=== PATIENT | female | born 1985 | race Caucasian/White ===

== ENCOUNTER → 2017-05-06 | Outpatient (CLI) | payer OTHER ==
--- NOTE | 2017-05-07 03:41 | MR ---
EXAMINATION TYPE: MR knee LT wo con DATE OF EXAM: 05/06/2017 COMPARISON: 01/02/2012 HISTORY: Left Knee Pain with Locking and Swelling since November 2016 TECHNIQUE: Multiplanar, multisequence imaging of the left knee is performed without IV contrast. FINDINGS: The anterior and posterior cruciate ligaments are intact. There is mild knee joint effusion. There is increased signal within the posterior horn medial meniscus. I see no full-thickness tear. The latera l meniscus is intact. The collateral ligaments are intact. There is mixed signal in the distal femora l metaphysis that could relate to old bone infarct. The joint spaces are fairly normal. There is no s ign of a fracture. IMPRESSION: There is a knee joint effusion that is increased slightly compared to old exam. No evidence of ligame ntous tear. There is intrasubstance tear or degenerative signal change of the posterior horn medial m eniscus similar to old exam. 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
== END | disposition home or self-care (01) ==
LOC: RADMRIMAIN 21:37
PROVIDERS: ATTEND Family Medicine
DX: M25.462 Effusion, left knee (principal)

== ENCOUNTER 2017-07-08 20:25 | Emergency (ER) | payer OTHER ==
[2017-07-08 20:33] VITALS: BP 102/59; PULSE 87; RESP 18; TEMP 97.6
--- NOTE | 2017-07-08 21:11 | ED ---
Fall HPI - General Chief Complaint: Fall Stated Complaint: Fall. L hand Injury Time Seen by Provider: 07/08/17 20:42 Source: patient Mode of arrival: ambulatory - History of Present Illness Initial Comments: 31-year-old female patient presents for evaluation of left hand pain. Patient [place] states that she got up into a tree states that when she jumped down from the tree her foot landed on an apple and she fell forward landing on her outstretched palm. Patient states that she is having pain in her hand extending from the base of the third digit down across her palm. She states that it hurts worse while making a fist or extending the fingers. She denies any numbness or tingling to the hand or fingers. She states that she is able to perform full range of motion however has increased pain with this. She denies any pain to the wrist. Denies any painful range of motion of the wrist. She denies any previous injury to the hand. She states the pain has worsened as the day progressed. She denies taking anything for pain. She denies hitting her head or losing consciousness. She denies any other injuries. Patient denies any headache, neck pain, back pain, chest pain, shortness of breath, dizziness, weakness, abdominal pain, nausea, vomiting, or difficulties with bowel movements or urination. - Related Data Home Medications Medication Instructions Recorded Confirmed Albuterol Sulfate [Proair Hfa] 1 - 2 puff INHALATION Q6HR PRN 10/25/14 08/16/16 Beclomethasone Dipropionate [Qvar 1 puff INHALATION RT-DAILY 07/08/17 07/08/17 80 mcg] Loratadine [Claritin] 10 mg PO DAILY 07/08/17 07/08/17 Montelukast [Singulair] 10 mg PO DAILY 07/08/17 07/08/17 Phentermine HCl [Adipex-P] 37.5 mg PO QAM 07/08/17 07/08/17 buPROPion XL [Wellbutrin XL] 150 mg PO DAILY 07/08/17 07/08/17 Allergies Allergy/AdvReac Type Severity Reaction Status Date / Time alcohol Allergy Unknown Verified 07/08/17 20:33 [From Mastisol Adhesive] gum mastic Allergy Unknown Verified 07/08/17 20:33 [From Mastisol Adhesive] methyl salicylate Allergy Unknown Verified 07/08/17 20:33 [From Mastisol Adhesive] storax Allergy Unknown Verified 07/08/17 20:33 [From Mastisol Adhesive] Review of Systems ROS Statement: Those systems with pertinent positive or pertinent negative responses have been documented in the HPI. ROS Other: All systems not noted in ROS Statement are negative. Past Medical History Past Medical History: Asthma History of Any Multi-Drug Resistant Organisms: None Reported Past Surgical History: Section Additional Past Surgical History / Comment(s): rhinoplasty Past Anesthesia/Blood Transfusion Reactions: Motion Sickness, Postoperative Nausea & Vomiting (PONV) Past Psychological History: No Psychological Hx Reported Smoking Status: Never smoker Past Alcohol Use History: None Reported Past Drug Use History: None Reported - Past Family History Mother Family Medical History: Cancer General Exam Limitations: no limitations General appearance: alert, in no apparent distress, other (This is a well- developed, well-nourished adult female patient in no acute distress. Vital signs upon presentation her temperature 97.6F, pulse 87, respirations 18, blood pressure 102/59, pulse ox 100% on room air.) Head exam: Present: atraumatic, normocephalic, normal inspection Eye exam: Present: normal appearance, PERRL, EOMI. Absent: scleral icterus, conjunctival injection, periorbital swelling Neck exam: Present: normal inspection, full ROM, other (Nontender, no step-off, no deformity to firm midline palpation of the posterior cervical spine. Full range of motion without pain or limitation.). Absent: tenderness, meningismus, lymphadenopathy Respiratory exam: Present: normal lung sounds bilaterally. Absent: respiratory distress, wheezes, rales, rhonchi, stridor Cardiovascular Exam: Present: regular rate, normal rhythm, normal heart sounds. Absent: systolic murmur, diastolic murmur, rubs, gallop, clicks Extremities exam: Present: normal inspection, full ROM, tenderness (Tenderness over the left hand. No tenderness over the wrist, no tenderness over the anatomical snuffbox.), normal capillary refill, other (Skin to the left upper extremity is pink, warm, and dry. Cap refills less than 3 seconds. Radial pulse is intact and 2+.). Absent: pedal edema, joint swelling, calf tenderness Back exam: Present: normal inspection, other (Nontender, no step-off, no deformity to firm midline palpation of the thoracic and lumbar vertebrae. Full range of motion without pain or limitation.). Absent: tenderness, vertebral tenderness Neurological exam: Present: alert, oriented X3, CN II-XII intact Psychiatric exam: Present: normal affect, normal mood Skin exam: Present: warm, dry, intact, normal color. Absent: rash Course Vital Signs 07/08/17 20:30 Temperature 97.6 F Pulse Rate 87 Respiratory 18 Rate Blood Pressure 102/59 O2 Sat by Pulse 100 Oximetry Medical Decision Making - Medical Decision Making 31-year-old male patient is under evaluation of left hand pain after an injury earlier today. X-ray of the hand was negative for any acute fracture or dislocation. Patient had no tenderness over the anatomical snuffbox and did have full range of motion. José wrap was applied. She was instructed to follow up for repeat x-ray in 7-10 days if her symptoms persist. She is instructed to rest, ice, and elevate. She is instructed to ibuprofen or Tylenol for pain control. She is instructed to return immediately for any new, worsening, or concerning symptoms. She verbalizes understanding and agrees with this plan. - Radiology Data Radiology results: report reviewed, image reviewed Three-view x-ray of the left hand shows no fracture or dislocation. Joint spaces are normal. There are no pathologic calcifications. Impression by Dr. London shows negative left hand exam. Disposition Clinical Impression: Sprain of left hand Disposition: HOME SELF-CARE Condition: Good Instructions: Hand Sprain (ED) Additional Instructions: Rest, ice, and elevate the extremity. Take Avapro and or Tylenol for pain control. Follow up for repeat x-ray in 7-10 days if pain symptoms persist. Activity as tolerated with the hand. Use José wrap for compression and support. Return here immediately for any new, worsening, or concerning symptoms. Referrals: Alla Guzmán MD [Primary Care Provider] - 1-2 days Time of Disposition: 21:24
--- NOTE | 2017-07-08 21:12 | XR ---
EXAMINATION TYPE: XR hand complete LT DATE OF EXAM: 07/08/2017 COMPARISON: NONE HISTORY: Pain TECHNIQUE: 3 views FINDINGS: I see no fracture nor dislocation. Joint spaces are normal. There are no pathologic calcifi cations. IMPRESSION: Negative left hand exam
== END 2017-07-08 21:29 | disposition home or self-care (01) ==
LOC: EC 20:25
DX: S63.92XA Sprain of unspecified part of left wrist and hand, initial encounter (principal); J45.909 Unspecified asthma, uncomplicated; Z79.51 Long term (current) use of inhaled steroids; Z79.899 Other long term (current) drug therapy; Z91.048 Other nonmedicinal substance allergy status; W14.XXXA Fall from tree, initial encounter; Y92.74 Orchard as the place of occurrence of the external cause
CPT/HCPCS: 99283

== ENCOUNTER → 2018-11-26 | Outpatient (CLI) | payer OTHER ==
[2018-11-26 18:17] LABS: Iron Saturation 14.06 (12.00-45.00)
[2018-11-26 18:27] LABS: Vitamin D 25 Hydroxy 21.2 ng/mL (30.0-100.0)
== END | disposition home or self-care (01) ==
LOC: LABWHC1 14:57
PROVIDERS: ATTEND Dermatology
DX: L65.9 Nonscarring hair loss, unspecified (principal)
CPT/HCPCS: 36415; 82306; 82627; 82728; 83540; 83550; 84403; 86038

== ENCOUNTER → 2019-10-13 | Outpatient (CLI) | payer SELFPAY ==
[2019-10-13 10:41] LABS: HCT 39.7 % (34.0-46.0); HGB 12.5 gm/dL (11.4-16.0); Hypochromasia Slight; MCH 26.9 pg (25.0-35.0); MCHC 31.4 g/dL (31.0-37.0); MCV 85.5 fL (80.0-100.0); Mean Platelet Volume 6.9; Platelet Count 410 k/uL (150-450); RBC 4.64 m/uL (3.80-5.40); RDW 12.7 % (11.5-15.5); WBC 5.9 k/uL (3.8-10.6)
[2019-10-13 10:48] LABS: INR 0.9 (<1.2); Partial Thromboplastin Time 22.6 sec (22.0-30.0); Prothrombin Time 9.6 sec (9.0-12.0)
[2019-10-13 16:33] LABS: Albumin 4.2 g/dL (3.80-4.90); Anion Gap 9.2 mmol/L (4.00-12.00); BUN/Creat Ratio 14.29 Ratio (12.00-20.00); Calcium 9.2 mg/dL (8.7-10.3); Carbon Dioxide 26.8 mmol/L (21.6-31.8); Globulin 2.1 g/dL (1.6-3.3); Potassium 4.4 mmol/L (3.5-5.5); Total Bilirubin 0.2 mg/dL (0.3-1.2); Total Protein 6.3 g/dL (6.2-8.2)
== END | disposition home or self-care (01) ==
LOC: LABWHC1 10:09
PROVIDERS: ATTEND Plastic Surgery Plastic Surgery Within the Head and Neck
DX: D64.9 Anemia, unspecified (principal); D68.9 Coagulation defect, unspecified; E87.8 Other disorders of electrolyte and fluid balance, not elsewhere classified
CPT/HCPCS: 36415; 80053; 85027; 85610; 85730

== ENCOUNTER 2019-10-22 11:05 | Inpatient (IN) | payer OTHER ==
[2019-10-22 12:06] LABS: ALT 23 U/L (4-34); AST 48 U/L (14-36); African American GFR (CKD) >90 (>60 ml/min/1.73 sqM); Albumin 3.4 g/dL (3.5-5.0); Alkaline Phosphatase 38 U/L (38-126); Anion Gap 8 mmol/L; Bilirubin, Delta 0.2 mg/dL (0.0-0.2); Bilirubin,Unconjugated 0.4 mg/dL (0.0-1.1); Blood Urea Nitrogen 9 mg/dL (7-17); Calcium 8.3 mg/dL (8.4-10.2); Carbon Dioxide 24 mmol/L (22-30); Chloride 107 mmol/L (98-107); Glucose 129 mg/dL (74-99); Non-African American GFR(CKD) >90 (>60 ml/min/1.73 sqM); Potassium 3.9 mmol/L (3.5-5.1); Salicylate 1.1 mg/dL; Sodium 139 mmol/L (137-145); Total Bilirubin 0.6 mg/dL (0.2-1.3); Total Protein 6.2 g/dL (6.3-8.2)
[2019-10-22 12:11] LABS: INR 0.9 (<1.2); Prothrombin Time 9.4 sec (9.0-12.0)
[2019-10-22 12:13] LABS: Acetaminophen 70.7 ug/mL
[2019-10-22 12:17] LABS: Basophils % (A) 0 %; Eosinophils # (A) 0.1 k/uL (0-0.7); Eosinophils % (A) 1 %; HCT 34.6 % (34.0-46.0); HGB 10.8 gm/dL (11.4-16.0); Lymphocytes # (A) 1.8 k/uL (1.0-4.8); Lymphocytes % (A) 16 %; MCH 26.9 pg (25.0-35.0); MCHC 31.3 g/dL (31.0-37.0); MCV 85.8 fL (80.0-100.0); Mean Platelet Volume 6.9; Monocytes # (A) 0.3 k/uL (0-1.0); Monocytes % (A) 3 %; Neutrophils % (A) 79 %; Platelet Count 323 k/uL (150-450); RBC 4.03 m/uL (3.80-5.40); RDW 13.6 % (11.5-15.5); WBC 11.4 k/uL (3.8-10.6)
[2019-10-22] MEDS ORDERED: ACETYLCYSTEINE 6,000 MG/30 ML VIAL PO STA (13:11)
[2019-10-22 13:45] LABS: Alcohol <10 mg/dL
[2019-10-22] MEDS ORDERED: NALOXONE 0.4 MG/ML 1 ML VIAL IV PRN (13:46)
--- NOTE | 2019-10-22 13:46 | ED ---
Overdose HPI - General Chief Complaint: Overdose Stated Complaint: Overdose Time Seen by Provider: 10/22/19 11:49 Source: EMS Mode of arrival: EMS Limitations: no limitations - History of Present Illness Initial Comments: Patient presents with a Tylenol and Valium overdose. She had cosmetic surgery couple days ago. She didn't feel like her pain was being well controlled. She took a large dose of [place] and Valium today. Patient doesn't admit to suicidal ideation. She has no chest or belly or back pain. She has no headache. She does complain of feeling weak and dizzy and somnolent. - Related Data Home Medications Medication Instructions Recorded Confirmed Albuterol Sulfate [Proair Hfa] 1 - 2 puff INHALATION RT-Q6H PRN 10/22/19 10/22/19 Cephalexin [Keflex] 500 mg PO Q8H PRN 10/22/19 10/22/19 Diazepam [Valium] 5 mg PO Q8H PRN 10/22/19 10/22/19 Docusate [Colace] 100 mg PO DAILY 10/22/19 10/22/19 HYDROcodone/APAP 5-325MG [[place] 1 - 2 tab PO Q4H PRN 10/22/19 10/22/19 5-325] Allergies Allergy/AdvReac Type Severity Reaction Status Date / Time alcohol Allergy Unknown Verified 10/22/19 12:33 [From Mastisol Adhesive] gum mastic Allergy Unknown Verified 10/22/19 12:33 [From Mastisol Adhesive] methyl salicylate Allergy Unknown Verified 10/22/19 12:33 [From Mastisol Adhesive] storax Allergy Unknown Verified 10/22/19 12:33 [From Mastisol Adhesive] Review of Systems ROS Statement: Those systems with pertinent positive or pertinent negative responses have been documented in the HPI. ROS Other: All systems not noted in ROS Statement are negative. Past Medical History Past Medical History: Asthma History of Any Multi-Drug Resistant Organisms: None Reported Past Surgical History: Section Additional Past Surgical History / Comment(s): rhinoplasty, Abdominal plasty & breast augmentation on 10/20/19 Past Anesthesia/Blood Transfusion Reactions: Motion Sickness, Postoperative Nausea & Vomiting (PONV) Past Psychological History: No Psychological Hx Reported Smoking Status: Never smoker Past Alcohol Use History: None Reported Past Drug Use History: None Reported - Past Family History Mother Family Medical History: Cancer General Exam Limitations: altered mental status General appearance: appears intoxicated, lethargic, obtunded Head exam: Present: atraumatic Eye exam: Present: normal appearance Pupils: Present: normal accommodation ENT exam: Present: normal exam Neck exam: Present: normal inspection. Absent: tenderness Respiratory exam: Present: normal lung sounds bilaterally. Absent: respiratory distress Cardiovascular Exam: Present: regular rate, normal rhythm GI/Abdominal exam: Present: soft. Absent: distended, tenderness Extremities exam: Present: normal inspection, full ROM. Absent: tenderness Back exam: Present: normal inspection, full ROM. Absent: tenderness Neurological exam: Present: altered Psychiatric exam: Present: normal affect, normal mood Skin exam: Present: warm, dry Course Vital Signs 10/22/19 10/22/19 10/22/19 11:09 11:30 12:00 Temperature 98.4 F Pulse Rate 83 78 76 Respiratory 16 Rate Blood Pressure 118/69 108/60 100/58 O2 Sat by Pulse 94 L 95 96 Oximetry 10/22/19 12:30 Temperature 98.2 F Pulse Rate 76 Respiratory 16 Rate Blood Pressure 105/56 O2 Sat by Pulse 98 Oximetry Medical Decision Making - Medical Decision Making Patient presents with Tylenol overdose. I spoke with poison control. They recommended starting the patient on Mucomyst. I spoke with the ICU attending. Patient will be admitted to the hospital. - Lab Data Result diagrams: 10/22/19 11:17 10/22/19 11:17 Lab Results 10/22/19 10/22/19 10/22/19 Range/Units 11:17 11:17 11:17 WBC 11.4 H (3.8-10.6) k/uL RBC 4.03 (3.80-5.40) m/uL Hgb 10.8 L (11.4-16.0) gm/dL Hct 34.6 (34.0-46.0) % MCV 85.8 (80.0-100.0) fL MCH 26.9 (25.0-35.0) pg MCHC 31.3 (31.0-37.0) g/dL RDW 13.6 (11.5-15.5) % Plt Count 323 (150-450) k/uL Neutrophils % 79 % Lymphocytes % 16 % Monocytes % 3 % Eosinophils % 1 % Basophils % 0 % Neutrophils # 9.0 H (1.3-7.7) k/uL Lymphocytes # 1.8 (1.0-4.8) k/uL Monocytes # 0.3 (0-1.0) k/uL Eosinophils # 0.1 (0-0.7) k/uL Basophils # 0.0 (0-0.2) k/uL PT 9.4 (9.0-12.0) sec INR 0.9 (<1.2) Sodium 139 (137-145) mmol/L Potassium 3.9 (3.5-5.1) mmol/L Chloride 107 (98-107) mmol/L Carbon Dioxide 24 (22-30) mmol/L Anion Gap 8 mmol/L BUN 9 (7-17) mg/dL Creatinine 0.52 (0.52-1.04) mg/dL Est GFR (CKD-EPI)AfAm >90 (>60 ml/min/1.73 sqM) Est GFR (CKD-EPI)NonAf >90 (>60 ml/min/1.73 sqM) Glucose 129 H (74-99) mg/dL Calcium 8.3 L (8.4-10.2) mg/dL Total Bilirubin 0.6 (0.2-1.3) mg/dL Conjugated Bilirubin 0.0 (0.0-0.3) mg/dL Unconjugated Bilirubin 0.4 (0.0-1.1) mg/dL Delta Bilirubin 0.2 (0.0-0.2) mg/dL AST 48 H (14-36) U/L ALT 23 (4-34) U/L Alkaline Phosphatase 38 (38-126) U/L Total Protein 6.2 L (6.3-8.2) g/dL Albumin 3.4 L (3.5-5.0) g/dL Salicylates 1.1 mg/dL Acetaminophen 70.7 H* ug/mL Disposition Clinical Impression: Acetaminophen overdose Disposition: ADMITTED IP TO THIS HOSP Condition: Critical Is patient prescribed a controlled substance at d/c from ED?: No Referrals: Alla Guzmán MD [Primary Care Provider] - 1-2 days
[2019-10-22] MEDS ORDERED: SODIUM CHLORIDE 0.9% 1,000 ML IV ONE (14:16)
[2019-10-22] MEDS ORDERED: ONDANSETRON 4 MG/2 ML VIAL IVP STA (14:18)
[2019-10-22 14:20] LABS: Acetaminophen 60.6 ug/mL
--- NOTE | 2019-10-22 14:24 | P.HPIM ---
History of Present Illness H&P Date: 10/22/19 Chief Complaint: Tylenol overdose, unintentional This is a 33-year-old female patient of Dr. Guzmán who presented to the ER after taking an increased amount of [place] and Valium at home. Patient reports that she had liposuction with abdominoplasty and breast augmentation on 10/20/2019 and that her pain was not well controlled so she kept taking the [place] and Valium. Patient reports that her mom and were concerned and decided to bring her to the ER. Patient isn't able to recall exactly how much medication she took. Patient denies that she was trying to harm herself. Patient denies any history of suicidal ideation. Acetaminophen level 70.7 on admission. Patient has been started on IV Mucomyst per ED and posion control recommendation. At this time patient has been admitted to the intensive care unit with critical care service is following. Patient reports some nausea and increased sleepiness. Patient does wake up to follow commands and answer que stions but quickly falls back to sleep. Additional medical history includes asthma and . Vitals currently stable. At this time patient denies any chest pain or shortness of breath. Patient denies any burning or frequency. Review of Systems Please refer to HPI otherwise unremarkable Past Medical History Past Medical History: Asthma History of Any Multi-Drug Resistant Organisms: None Reported Past Surgical History: Section Additional Past Surgical History / Comment(s): rhinoplasty, Abdominal plasty & breast augmentation on 10/20/19 Past Anesthesia/Blood Transfusion Reactions: Motion Sickness, Postoperative Nausea & Vomiting (PONV) Past Psychological History: No Psychological Hx Reported Smoking Status: Never smoker Past Alcohol Use History: None Reported Past Drug Use History: None Reported - Past Family History Mother Family Medical History: Cancer Medications and Allergies Home Medications Medication Instructions Recorded Confirmed Type Albuterol Sulfate [Proair Hfa] 1 - 2 puff INHALATION RT-Q6H PRN 10/22/19 10/22/19 History Cephalexin [Keflex] 500 mg PO Q8H PRN 10/22/19 10/22/19 History Diazepam [Valium] 5 mg PO Q8H PRN 10/22/19 10/22/19 History Docusate [Colace] 100 mg PO DAILY 10/22/19 10/22/19 History HYDROcodone/APAP 5-325MG [[place] 1 - 2 tab PO Q4H PRN 10/22/19 10/22/19 History 5-325] Allergies Allergy/AdvReac Type Severity Reaction Status Date / Time alcohol Allergy Unknown Verified 10/22/19 12:33 [From Mastisol Adhesive] gum mastic Allergy Unknown Verified 10/22/19 12:33 [From Mastisol Adhesive] methyl salicylate Allergy Unknown Verified 10/22/19 12:33 [From Mastisol Adhesive] storax Allergy Unknown Verified 10/22/19 12:33 [From Mastisol Adhesive] Physical Exam Vitals: Vital Signs Temp Pulse Resp BP Pulse Ox 10/22/19 12:30 98.2 F 76 16 105/56 98 10/22/19 12:00 76 100/58 96 10/22/19 11:30 78 108/60 95 10/22/19 11:09 98.4 F 83 16 118/69 94 L Intake and Output 10/21/19 10/22/19 10/22/19 22:59 06:59 14:59 Other: Weight 83.461 kg Head normocephalic Neck supple Lungs clear to auscultation bilaterally no wheezing or crackles Heart regular rate and rhythm S1-S2, no rub or gallop Abdomen is soft nontender nondistended positive bowel sounds no hepatospleno megaly Extremities no edema Neuro alert and orientated to 3. Patient is sleepy but does wake up to follow commands Results CBC & Chem 7: 10/22/19 11:17 10/22/19 11:17 Labs: Abnormal Lab Results - Last 24 Hours (Table) 10/22/19 10/22/19 Range/Units 11:17 11:17 WBC 11.4 H (3.8-10.6) k/uL Hgb 10.8 L (11.4-16.0) gm/dL Neutrophils # 9.0 H (1.3-7.7) k/uL Glucose 129 H (74-99) mg/dL Calcium 8.3 L (8.4-10.2) mg/dL AST 48 H (14-36) U/L Total Protein 6.2 L (6.3-8.2) g/dL Albumin 3.4 L (3.5-5.0) g/dL Acetaminophen 70.7 H* ug/mL Assessment and Plan Assessment: 1. Accidental Tylenol overdose. Patient unable to recall how much [place] and Valium she took. Patient denies any suicidal ideation patient reports she was trying to control her pain postoperatively. Tylenol level 70.7. Patient admitted to the intensive care unit. Critical care services have been consulted. Mucomyst IV ordered per poison control recommendation 2. Recent cosmetic procedure on 10/20/2019. She reports that she had abdominoplasty with liposuction and breast augmentation 3. History of asthma. No exacerbation at this time 4. History of DVT prophylaxis heparin. GI prophylaxis Protonix. Patient admitted to the intensive care unit Dr. Benavides following for critical care Continue Mucomyst for Tylenol overdose Time with Patient: Greater than 30 (Greater than 60% of the total time spent in counseling and coordination of care. I performed an examination of the patient and discussed their management with the Nurse Practitioner. I have reviewed the Nurse Practitioner's notes and agree with the documented findings and plan of care)
[2019-10-22] MEDS ORDERED: WATER IV ONE ×6 (14:30→19:30)
[2019-10-22] MEDS ORDERED: DEXTROSE 5% IV ONE ×6 (14:30→19:30)
[2019-10-22] MEDS ORDERED: ACETYLCYSTEINE IV ONE ×6 (14:30→19:30)
[2019-10-22] MEDS ORDERED: ACETYLCYSTEINE 6,000 MG/30 ML VIAL PO SCH (17:30)
[2019-10-22 17:37] LABS: Urn Cannabinoid Scrn Not Detected (NotDetected)
[2019-10-22 17:38] LABS: Amphetamine Screen,Urine Not Detected (NotDetected); Barbiturate Screen,Urine Not Detected (NotDetected); Benzodiazepines Screen,Urine Detected (NotDetected); Cocaine Screen,Urine Not Detected (NotDetected); Methadone Screen, Urine Not Detected (NotDetected); Opiate Screen,Urine Detected (NotDetected); Oxycodone Screen, Urine Not Detected (NotDetected); Phencyclidine Screen,Urine Not Detected (NotDetected); Tricyclic Antidepressant,Urine Not Detected (NotDetected)
[2019-10-22 17:40] LABS: Appearance,Urine Clear (Clear); Bilirubin,Urine Negative (Negative); Blood,Urine Negative (Negative); Color,Urine Yellow; Glucose,Urine (UA) Negative (Negative); Ketones,Urine 4+ (Negative); Leukocyte Esterase,Urine Negative (Negative); Nitrite,Urine Negative (Negative); PH, Urine 5.5 (5.0-8.0); Protein,Urine Negative (Negative); Specific Gravity,Urine 1.016 (1.001-1.035); Urobilinogen,Urine <2.0 mg/dL (<2.0)
[2019-10-22 17:44] LABS: Glucose,Whole Blood 114 mg/dL (75-99)
[2019-10-22] MEDS: SODIUM CHLORIDE 0.9% 1,000 ML IV SCH (17:52)
[2019-10-22] MEDS: HEPARIN SODIUM,PORCINE 5,000 UNIT/ML 1 ML VIAL SQ SCH (20:29)
--- NOTE | 2019-10-22 20:33 | CONS ---
CONSULTATION PULMONARY/CRITICAL CARE CONSULTATION: DATE OF CONSULTATION: 10/22/2019 This is a 33-year-old female who apparently accidentally took an overdose of Tylenol and Valium. The patient apparently had significant cosmetic surgery on Friday. She went to somebody in [place]. She had liposuction of the thighs. She had hernia repair, abdominoplasty, breast augmentation and lift. She was discharged on some pain medications and the pain was unbearable, so she took all of the medications all at one time pretty much. She came in to the emergency room on October 22 at 11:00 because of this excess of pain medication that she took. This was not a suicide attempt. She complains of being nauseated with vomiting. She still has lots of pain in her chest and abdomen. She is very lethargic and sleepy. She is very dizzy and weak. She is barely able to give any history. Her primary care physician is Dr. Guzmán. I actually know her . HOME MEDICATIONS: Include a rescue inhaler, Keflex, Valium, Colace and [place]. ALLERGIES: ALLERGIES include ALCOHOL, GUM MASTIC, METHYL SALICYLATE, and STORAX. MEDICAL HISTORY: Only asthma. SURGICAL HISTORY: Includes , rhinoplasty, abdominoplasty and breast augmentation recently. No other surgical history noted. SOCIAL HISTORY: Negative for tobacco, alcohol or illicit drug use. FAMILY HISTORY: Positive for mother with cancer. REVIEW OF SYSTEMS: CONSTITUTIONAL: Weakness, fatigue. NEUROLOGIC: Dizziness and lightheadedness. HEENT: Negative. CARDIOVASCULAR: Negative. PULMONARY: Negative. GI: Nausea, vomiting. : Negative. RHEUMATOLOGIC: Negative. IMMUNOLOGIC: Negative. ENDOCRINOLOGIC: Negative. DERMATOLOGIC: Negative. PHYSICAL EXAMINATION: VITAL SIGNS: Current vital signs are reviewed. Temperature is 98.2, heart rate 81, respiratory rate 14, blood pressure 102/59, mean 73. Two-liter saturations 100%. GENERAL APPEARANCE: Appears in no acute distress. Very sleepy and lethargic. Very nauseated with episodic emesis. HEENT EXAMINATION: Grossly unremarkable. Mucous membranes are dry. NECK: Supple. Full range of motion. No adenopathy. Neck veins are flat. CARDIOVASCULAR: Examination reveals regular rhythm and rate. Heart rate 78 beats per minute. S1, S2 normal. LUNGS: Clear breath sounds, equal. ABDOMEN: Soft. EXTREMITIES: Intact. No edema. SKIN: Without rash. NEUROLOGIC: Neurologic examination is brief but nonfocal. No chest x-ray to report. LABS: Reviewed. White count 11.4, hemoglobin 10.8, hematocrit 34.6, platelet count 323,000. PT/INR normal. Sodium, potassium, chloride, CO2 all normal. Anion gap normal. Kidney function normal. Glucose 129. Calcium 8.3. AST 48, ALT 23, albumin 3.4. Tylenol level was 70.7 and then followup 60.6. Alcohol less than 10. Salicylate level 1.1. She was started on IV N-acetylcysteine. MEDICATIONS: Her medications include IV N-acetylcysteine, Ancef, Colace, subcutaneous heparin, Narcan, Zofran, Protonix and an IV of 0.9 at 100 mL/hour. ASSESSMENT: 1. Accidental overdose of Valium and [place] in a patient who recently had cosmetic surgery on Friday. Her surgeries included abdominoplasty, hernia repair, thigh liposuction, breast augmentation and lift. 2. History of mild chronic bronchial asthma. PLAN: The patient will be placed in the ICU for closer monitoring. Additional recommendations and suggestions are forthcoming. She needs serial liver enzymes. Prognosis is guarded. Additional recommendations and suggestions are forthcoming. MMODL / IJN: [id number] /
[2019-10-23] MEDS: SODIUM CHLORIDE 0.9% 1,000 ML IV SCH ×3 (03:00→22:05)
[2019-10-23 03:35] LABS: ALT 20 U/L (4-34); Acetaminophen 44.3 ug/mL; African American GFR (CKD) >90 (>60 ml/min/1.73 sqM); Albumin 3.1 g/dL (3.5-5.0); Anion Gap 5 mmol/L; Blood Urea Nitrogen 4 mg/dL (7-17); Calcium 8.4 mg/dL (8.4-10.2); Carbon Dioxide 25 mmol/L (22-30); Chloride 110 mmol/L (98-107); Glucose 92 mg/dL (74-99); Non-African American GFR(CKD) >90 (>60 ml/min/1.73 sqM); Sodium 140 mmol/L (137-145); Total Bilirubin 0.7 mg/dL (0.2-1.3); Total Protein 5.9 g/dL (6.3-8.2)
[2019-10-23 03:36] LABS: Basophils # (A) 0.2 k/uL (0-0.2); Basophils % (A) 2 %; Eosinophils # (A) 0.3 k/uL (0-0.7); Eosinophils % (A) 3 %; HCT 32.9 % (34.0-46.0); HGB 10.3 gm/dL (11.4-16.0); Lymphocytes % (A) 31 %; MCH 26.2 pg (25.0-35.0); MCHC 31.3 g/dL (31.0-37.0); MCV 83.8 fL (80.0-100.0); Mean Platelet Volume 8.2; Monocytes # (A) 0.5 k/uL (0-1.0); Monocytes % (A) 6 %; Neutrophils # (A) 5.5 k/uL (1.3-7.7); Neutrophils % (A) 58 %; Platelet Count 178 k/uL (150-450); RBC 3.93 m/uL (3.80-5.40); RDW 13.5 % (11.5-15.5); WBC 9.5 k/uL (3.8-10.6)
[2019-10-23 03:48] LABS: AST 42 U/L (14-36); Alkaline Phosphatase 36 U/L (38-126); Potassium 4.9 mmol/L (3.5-5.1)
[2019-10-23] MEDS: DOCUSATE 100 MG CAP PO SCH (08:47)
[2019-10-23] MEDS: HEPARIN SODIUM,PORCINE 5,000 UNIT/ML 1 ML VIAL SQ SCH ×2 (08:48→21:33)
[2019-10-23] MEDS: PANTOPRAZOLE 40 MG/10 ML VIAL IV SCH (08:48)
[2019-10-23] MEDS: KETOROLAC 30 MG/ML 1 ML VIAL IVP PRN ×2 (10:14→21:32)
--- NOTE | 2019-10-23 10:42 | PN ---
PROGRESS NOTE PULMONARY/CRITICAL CARE PROGRESS NOTE: DATE OF SERVICE: 10/23/2019 This is a 33-year-old female who apparently accidentally took an overdose of Tylenol and Valium. She recently had significant cosmetic surgery on Friday. She had a number of things done including liposuction of her thighs, hernia repair, abdominal plasty, breast augmentation and left. She was discharged on pain medications, i.e., Tylenol with narcotics. Because of the unbearable pain, she just swallowed all the Tylenol within a day or so. She came into the hospital with complaints of lightheadedness, dizziness, nausea, vomiting, just not feeling well. Her initial Tylenol level was 77. She was started on IV and acetylcysteine. She has no major medical problems other than for some mild asthma. Her primary care physician is Dr. Guzmán. I am friends with her , Yogesh. Currently, she is doing better. She is resting comfortably in the ICU. She is on O2 at 2 L. She is getting her acetylcysteine IV at 71 mL an hour. She is on IV Ancef. Current vital signs are reviewed. Temperature is 99.7, heart rate 79, respiratory rate 10, blood pressure 106/56 mean 72, 2 L saturation is 100%. Appears in no acute distress. HEENT: Examination is grossly unremarkable. Mucous membranes are moist. No oral lesions. NECK: Supple, full range of motion. No adenopathy or thyromegaly. Neck veins are flat. CARDIOVASCULAR: Examination reveals regular rhythm and rate. S1, S2 normal. No S3, S4, or murmur. LUNGS: Reveal clear breath sounds. No wheezes or rhonchi. ABDOMEN: Soft bowel sounds are heard. EXTREMITIES are intact. No cyanosis, clubbing, or edema. SKIN: Without rash. NEUROLOGIC: Examination is brief but nonfocal. Microbiology is negative. There is no chest x-ray. LABS: Reviewed. White count 9.5, hemoglobin 10.3, hematocrit 32.9, platelet count 178,000. Sodium 140, potassium 4.9, chloride is 110, CO2 is 25, anion gap is 5. BUN and creatinine were 4 and 0.41. Her AST is 42 and yesterday's AST was 48. Her ALT is 20, it was yesterday being 23, alkaline phosphatase is 36, albumin is 3.1. Her urine is negative. Her drug screen was positive for opiates and benzodiazepine. Her Tylenol level which was initially 70.7 came down to 41.7 and now it is 18.9. CURRENT MEDICATIONS: Reviewed. She is on the IV N-acetylcysteine, Ancef, Colace, subcu heparin, Toradol Narcan, Zofran, Protonix, her basic IV at 75 mL an hour when the N acetylcysteine is discontinued in a few hours. ASSESSMENT: 1. Accidental overdose of Valium and [place] with the potential for Tylenol toxicity, after cosmetic surgery last Friday, with an improving Tylenol level on IV N- acetylcysteine. 2. Status post recent abdominoplasty, hernia repair, thigh liposuction, breast augmentation, and lift. 3. History of mild chronic bronchial asthma. PLAN: The patient is doing well. Liver enzymes are coming down. She is feeling much better. Less nausea and vomiting. No lightheadedness or dizziness today. The patient is feeling better. Will keep her here in the ICU. Her IV will convert to 0.9 at 75 mL an hour. She currently does not feel like eating. When she does, will start feeding her. Additional recommendations and suggestions are forthcoming. Prognosis is guarded. MMODL / IJN: [id number] /
--- NOTE | 2019-10-23 13:11 | P.PN ---
Subjective Progress Note Date: 10/23/19 Johanne Cooney is a 33-year-old female patient of Dr. Guzmán who presented to the ER after taking an increased amount of [place] and Valium at home. Patient reports that she had liposuction with abdominoplasty and breast augmentation on 10/20/2019 and that her pain was not well controlled so she kept taking the [place] and Valium. Patient reports that her mom and were concerned and decided to bring her to the ER. Patient isn't able to recall exactly how much medication she took. Patient denies that she was trying to harm herself. Patient denies any history of suicidal ideation. Acetaminophen level 70.7 on admission. Patient has been started on IV Mucomyst per ED and posion control recommendation. At this time patient has been admitted to the intensive care unit with critical care service is following. Patient reports some nausea and increased sleepiness. Patient does wake up to follow commands and answer questions but quickly falls back to sleep. Additional medical history includes asthma and . Vitals currently stable. At this time patient denies any chest pain or shortness of breath. Patient denies any burning or frequency. On 07/23/2020 patient was seen and examined in ICU, she is alert and oriented 3 in no apparent distress, she is complaining of some dizziness and headache otherwise she denies any complaints there is no fever or chills no chest pain no shortness of breath no cough no nausea or vomiting no abdominal pain no diarrhea no burning with urination no frequency or urgency no hematuria she is tolerating diet well. Objective - Vital Signs Vital signs: Vital Signs Temp 99.3 F 10/23/19 12:00 Pulse 78 10/23/19 12:00 Resp 12 10/23/19 12:00 BP 100/62 10/23/19 12:00 Pulse Ox 96 10/23/19 12:00 Intake & Output 10/22/19 10/23/19 10/23/19 18:59 06:59 18:59 Intake Total 230.2 1380.2 660 Output Total 1200 1445 945 Balance -969.8 -64.8 -285 Weight 95.2 kg 95.5 kg Intake: IV 1150 660 .9 1100 400 Acetylcysteine IV 8,345 260 mg In Dextrose 5% in Water 1,000 ml @ 65.108 mls/hr IV ONCE ONE Rx#: [id number] ceFAZolin 2 gm In Sodium 50 Chloride 0.9% 50 ml @ 100 mls/hr IVPB Q12HR [facility] Rx #:[id number] Intake, IV Titration 230.2 230.2 Amount Acetylcysteine IV 4,175 130.2 130.2 mg In Dextrose 5% in Water 500 ml @ 130.219 mls/hr IV ONCE ONE Rx#: [id number] Sodium Chloride 0.9% 1, 100 100 000 ml @ 100 mls/hr IV . Q10H [facility] Rx#:[id number] Output: Urine 1200 1445 945 Other: Voiding Method Indwelling Catheter Indwelling Catheter Indwelling Catheter - Exam In general patient is alert and oriented 3 in no apparent distress Head normocephalic and atraumatic Neck supple no JVD no goiter Lungs clear to auscultation bilaterally no wheezing or crackles Heart regular rate and rhythm S1-S2, no rub or gallop Abdomen is soft nontender nondistended positive bowel sounds no hepatosplenomegaly Extremities no edema no cyanosis or clubbing Neuro no gross focal neurological deficit - Labs CBC & Chem 7: 10/23/19 03:19 10/23/19 02:39 Labs: Abnormal Lab Results - Last 24 Hours (Table) 10/22/19 10/22/19 10/22/19 Range/Units 13:20 17:20 17:33 Hgb (11.4-16.0) gm/dL Hct (34.0-46.0) % Chloride (98-107) mmol/L BUN (7-17) mg/dL Creatinine (0.52-1.04) mg/dL POC Glucose (mg/dL) 114 H (75-99) mg/dL AST (14-36) U/L Alkaline Phosphatase (38-126) U/L Total Protein (6.3-8.2) g/dL Albumin (3.5-5.0) g/dL Urine Ketones 4+ H (Negative) Urine Opiates Screen Detected H (NotDetected) Acetaminophen 60.6 H* ug/mL U Benzodiazepines Scrn Detected H (NotDetected) 10/23/19 10/23/19 Range/Units 02:39 03:19 Hgb 10.3 L (11.4-16.0) gm/dL Hct 32.9 L (34.0-46.0) % Chloride 110 H (98-107) mmol/L BUN 4 L (7-17) mg/dL Creatinine 0.41 L (0.52-1.04) mg/dL POC Glucose (mg/dL) (75-99) mg/dL AST 42 H (14-36) U/L Alkaline Phosphatase 36 L (38-126) U/L Total Protein 5.9 L (6.3-8.2) g/dL Albumin 3.1 L (3.5-5.0) g/dL Urine Ketones (Negative) Urine Opiates Screen (NotDetected) Acetaminophen ug/mL U Benzodiazepines Scrn (NotDetected) Assessment and Plan Plan: 1. Accidental Tylenol overdose. Patient unable to recall how much [place] and Valium she took. Patient denies any suicidal ideation patient reports she was trying to control her pain postoperatively. Tylenol level 70.7. Patient admitted to the intensive care unit. Critical care services have been consulted. Mucomyst IV ordered per poison control recommendation. Patient is denying again any suicidal attempt or any intention to harm herself. 2. Recent cosmetic procedure on 10/20/2019. She reports that she had abdominoplasty with liposuction and breast augmentation 3. History of asthma. No exacerbation at this time 4. History of DVT prophylaxis heparin. GI prophylaxis Protonix. Patient admitted to the intensive care unit Dr. Benavides following for critical care, they plan to monitor patient for 1 more day in ICU
[2019-10-23] MEDS ORDERED: SODIUM CHLORIDE 0.9% 1,000 ML IV SCH (14:30)
[2019-10-24] MEDS: KETOROLAC 30 MG/ML 1 ML VIAL IVP PRN (02:42)
[2019-10-24] MEDS: ONDANSETRON 4 MG/2 ML VIAL IVP PRN (03:27)
[2019-10-24] MEDS: IBUPROFEN 600 MG TAB PO PRN ×2 (03:33→15:05)
[2019-10-24 05:14] LABS: Basophils % (A) 0 %; Eosinophils # (A) 0.1 k/uL (0-0.7); Eosinophils % (A) 1 %; HCT 34.3 % (34.0-46.0); HGB 10.5 gm/dL (11.4-16.0); Hypochromasia Slight; Lymphocytes # (A) 1.1 k/uL (1.0-4.8); Lymphocytes % (A) 8 %; MCH 26.3 pg (25.0-35.0); MCHC 30.6 g/dL (31.0-37.0); MCV 85.8 fL (80.0-100.0); Mean Platelet Volume 7.1; Monocytes # (A) 0.3 k/uL (0-1.0); Monocytes % (A) 2 %; Neutrophils # (A) 11.7 k/uL (1.3-7.7); Neutrophils % (A) 88 %; Platelet Count 290 k/uL (150-450); RBC 3.99 m/uL (3.80-5.40); RDW 13.2 % (11.5-15.5); WBC 13.2 k/uL (3.8-10.6)
[2019-10-24 05:17] LABS: ALT 20 U/L (4-34); AST 35 U/L (14-36); African American GFR (CKD) >90 (>60 ml/min/1.73 sqM); Albumin 2.8 g/dL (3.5-5.0); Alkaline Phosphatase 61 U/L (38-126); Anion Gap 6 mmol/L; Blood Urea Nitrogen 12 mg/dL (7-17); Calcium 8.2 mg/dL (8.4-10.2); Carbon Dioxide 23 mmol/L (22-30); Chloride 109 mmol/L (98-107); Glucose 140 mg/dL (74-99); Non-African American GFR(CKD) >90 (>60 ml/min/1.73 sqM); Potassium 3.7 mmol/L (3.5-5.1); Sodium 138 mmol/L (137-145); Total Bilirubin 0.4 mg/dL (0.2-1.3); Total Protein 5.6 g/dL (6.3-8.2)
[2019-10-24] MEDS ORDERED: Potassium Replacement Protocol 1 EACH MISC MISCELLANE PRN (05:22)
[2019-10-24] MEDS ORDERED: POTASSIUM CHLORIDE ER 20 MEQ TAB.ER PO SCH (06:00)
[2019-10-24] MEDS ORDERED: IPRATROPIUM-ALBUTEROL 3 ML NEB INHALATION PRN (08:12)
[2019-10-24] MEDS ORDERED: VANCOMYCIN IV PER PHARMACY 1 EACH MISC MISCELLANE SCH (08:15)
--- NOTE | 2019-10-24 08:23 | XR ---
EXAMINATION TYPE: XR chest 1V portable DATE OF EXAM: 10/24/2019 HISTORY: sob. REFERENCE: NONE. FINDINGS: There is bibasilar airspace disease. There is a left effusion. The heart is not enlarged. IMPRESSION: BIBASILAR INFILTRATES WITH A SMALL LEFT EFFUSION.
[2019-10-24] MEDS: PIPERACILLIN-TAZOBACTAM 3.375 GM in SODIUM CHLORIDE 0.9% 100 ML IVPB SCH ×3 (08:42→23:45)
[2019-10-24] MEDS: HYDROmorphone 1 MG/ML 1 ML SYRINGE IVP PRN (09:53)
[2019-10-24] MEDS: HEPARIN SODIUM,PORCINE 5,000 UNIT/ML 1 ML VIAL SQ SCH ×2 (10:11→21:54)
[2019-10-24] MEDS: VANCOMYCIN 1,500 MG in SODIUM CHLORIDE 0.9% 250 ML IVPB SCH ×3 (10:11→23:45)
[2019-10-24] MEDS: PANTOPRAZOLE 40 MG/10 ML VIAL IV SCH (10:11)
[2019-10-24] MEDS: DOCUSATE 100 MG CAP PO SCH (10:20)
[2019-10-24] MEDS: SODIUM CHLORIDE 0.9% 1,000 ML IV SCH ×2 (10:25→23:45)
--- NOTE | 2019-10-24 10:37 | PN ---
PROGRESS NOTE DATE OF SERVICE: October 24, 2019. This is a 33-year-old female who was seen yesterday and the day before. She had an accidental overdose of Tylenol and Valium. She had some cosmetic surgery done last Friday. She had a number of things done including a liposuction of her thighs, hernia repair, abdominal plasty, breast augmentation and lift. She was discharged on pain medications including Tylenol with narcotics and other medications as noted. Because of the unbearable pain from such an extensive surgery, she decided to take all the Tylenol at 1 time and came in with a Tylenol level of 77. Her symptoms in the emergency room included lethargy, somnolence, lightheadedness, dizziness, nausea, vomiting, and just not feeling well. She was started on IV acetylcysteine and transferred to the ICU. Other than mild asthma, she has no other medical problems. I am friends with her Yogesh and her primary care physician is Dr. Guzmán. Last night, she unfortunately developed elevated temperature. We used Motrin for temperature control. Today, we are going to expand her antibiotic coverage to Zosyn and Vanco. Chest x-ray shows some bibasilar atelectasis and/or infiltrate, although she does not have any pulmonary complaints. Her room-air saturation was only 91%. We bumped her up to 2 L. Her IV is 0.9 at 100. We gave her a L bolus and her lactic acid came back at 2.1. She will be cultured from top to bottom including blood, urine and sputum if we can get one. She is using the incentive spirometer as well. PHYSICAL EXAMINATION: VITAL SIGNS: Current vital signs are reviewed. Her temperature is 102.1, heart rate 122, respiratory rate 35, blood pressure 101/75, mean 83, room air saturation 91%. She is 96% on 2 L. Appears in no acute distress. Mildly tachypneic. HEENT: Examination is grossly unremarkable. NECK: Supple. Full range of motion. No adenopathy. Neck veins are flat. CARDIOVASCULAR: Examination reveals tachycardia. Heart rate about 120. S1, S2 normal. LUNGS: Relatively clear. A few scattered mild rhonchi. ABDOMEN: Soft. Bowel sounds are not noted. EXTREMITIES are intact. No edema. SKIN: Without rash. NEUROLOGIC: Examination is brief but nonfocal. Her nurse, Tracy, will look closely at her surgical sites and notify me if anything looks suspicious, but yesterday, everything looked clean and dry without drainage. LAB DATA: Reviewed. White count up to 13.2 from 9.5, hemoglobin 10.5, hematocrit 34.3, platelet count 290,000, sodium 138. Potassium 3.7, chloride 109, CO2 23, anion gap 6. BUN and creatinine were 12 and 0.53. The rest of the labs look okay. Most recent Tylenol level was 18.9. Lactic acid was 2.1. Microbiology is currently pending or negative. Chest x-ray shows some bibasilar atelectasis or infiltrate. MEDICATIONS: Reviewed. We just expanded her antibiotic coverage to Zosyn and Vanco. We also added some updrafts as well. ASSESSMENT: 1. Postoperative day #4, status post abdominoplasty, hernia repair, liposuction and breast augmentation with lift. 2. Accidental overdose of Valium and [place]/Tylenol with a potential for Tylenol toxicity after cosmetic surgery last Friday. Improving on IV N-acetylcysteine. 3. Recent development of temperature elevation and possible bibasilar pneumonia, antibiotics expanded. Rule out sepsis. 4. History of mild chronic bronchial asthma, not seemingly active at this time. PLAN: The patient will have a chest x-ray which was already done. We DC'd the Kefzol and added Zosyn and vancomycin. She will have blood cultures and urine samples done. If she can give us a sputum, we will get that from her. We gave her 2 L nasal cannula. We gave her a L of fluid bolus. Her lactic acid was 2.1. We added updrafts and incentive spirometer. Additional recommendations and suggestions are forthcoming. She will stay here in the ICU. Tracy will look at the surgical sites to make sure that there is no change from yesterday. MMODL / IJN: [id number] /
[2019-10-24] MEDS: IPRATROPIUM-ALBUTEROL 3 ML NEB INHALATION SCH ×3 (12:15→20:15)
--- NOTE | 2019-10-24 14:38 | P.PN ---
Subjective Progress Note Date: 10/24/19 Johanne Cooney is a 33-year-old female patient of Dr. Guzmán who presented to the ER after taking an increased amount of [place] and Valium at home. Patient reports that she had liposuction with abdominoplasty and breast augmentation on 10/20/2019 and that her pain was not well controlled so she kept taking the [place] and Valium. Patient reports that her mom and were concerned and decided to bring her to the ER. Patient isn't able to recall exactly how much medication she took. Patient denies that she was trying to harm herself. Patient denies any history of suicidal ideation. Acetaminophen level 70.7 on admission. Patient has been started on IV Mucomyst per ED and posion control recommendation. At this time patient has been admitted to the intensive care unit with critical care service is following. Patient reports some nausea and increased sleepiness. Patient does wake up to follow commands and answer questions but quickly falls back to sleep. Additional medical history includes asthma and . Vitals currently stable. At this time patient denies any chest pain or shortness of breath. Patient denies any burning or frequency. On 10/23/2019 patient was seen and examined in ICU, she is alert and oriented 3 in no apparent distress, she is complaining of some dizziness and headache otherwise she denies any complaints there is no fever or chills no chest pain no shortness of breath no cough no nausea or vomiting no abdominal pain no diarrhea no burning with urination no frequency or urgency no hematuria she is tolerating diet well. On 10/24/2019 patient was seen and examined in the intensive care unit she is alert and oriented 3 in no apparent distress she developed high fever through the night and had elevated lactic acid she was given IV fluid and was started on IV antibiotic, blood culture and chest x-ray were done, most likely cause of fever is possible aspiration, liver enzymes are improving, clinically patient is still complaining of pain mostly at the site of her surgery, otherwise she denies any complaints there is no chest pain no shortness of breath there is minimal cough no nausea or vomiting no abdominal pain no diarrhea and no urinary symptoms Objective - Vital Signs Vital signs: Vital Signs Temp 99.8 F H 10/24/19 13:00 Pulse 125 H 10/24/19 14:00 Resp 37 H 10/24/19 14:00 BP 118/86 10/24/19 14:00 Pulse Ox 95 10/24/19 14:00 Intake & Output 10/23/19 10/24/19 10/24/19 18:59 06:59 18:59 Intake Total 1260 2500 2150 Output Total 1545 1500 1100 Balance -285 1000 1050 Weight 98 kg Intake: IV 1260 1200 2150 .9 1000 1200 800 0.9 NACL bolus 1000 Acetylcysteine IV 8,345 260 mg In Dextrose 5% in Water 1,000 ml @ 65.108 mls/hr IV ONCE ONE Rx#: [id number] Zosyn 100 vancomycin 250 Oral 1300 Output: Urine 1545 1500 1100 Other: Voiding Method Indwelling Catheter Toilet Toilet # Voids 1 # Bowel Movements 1 2 - Exam In general patient is alert and oriented 3 in no apparent distress Head normocephalic and atraumatic Neck supple no JVD no goiter Lungs clear to auscultation bilaterally no wheezing or crackles Heart regular rate and rhythm S1-S2, no rub or gallop Abdomen is soft nontender nondistended positive bowel sounds no hepatosplenomegaly Extremities no edema no cyanosis or clubbing Neuro no gross focal neurological deficit - Labs CBC & Chem 7: 10/24/19 04:43 10/24/19 04:43 Labs: Abnormal Lab Results - Last 24 Hours (Table) 10/24/19 10/24/19 10/24/19 Range/Units 04:43 04:43 08:21 WBC 13.2 H (3.8-10.6) k/uL Hgb 10.5 L (11.4-16.0) gm/dL MCHC 30.6 L (31.0-37.0) g/dL Neutrophils # 11.7 H (1.3-7.7) k/uL Chloride 109 H (98-107) mmol/L Glucose 140 H (74-99) mg/dL Plasma Lactic Acid Anthony 2.1 H* (0.7-2.0) mmol/L Calcium 8.2 L (8.4-10.2) mg/dL Total Protein 5.6 L (6.3-8.2) g/dL Albumin 2.8 L (3.5-5.0) g/dL Assessment and Plan Plan: 1. Accidental Tylenol overdose. Patient unable to recall how much [place] and Valium she took. Patient denies any suicidal ideation patient reports she was trying to control her pain postoperatively. Tylenol level 70.7. Patient admitted to the intensive care unit. Critical care services have been consulted. Mucomyst IV ordered per poison control recommendation. Patient is denying again any suicidal attempt or any intention to harm herself. 2. Recent cosmetic procedure on 10/20/2019. She reports that she had abdominoplasty with liposuction and breast augmentation 3. History of asthma. No exacerbation at this time 4. History of 5. Fever likely related to aspiration pneumonia, patient was given IV fluids and was started on antibiotics, by critical care DVT prophylaxis heparin. GI prophylaxis Protonix. Patient admitted to the intensive care unit Dr. Benavides following for critical care, they plan to monitor patient for 1 more day in ICU
[2019-10-24] MEDS ORDERED: LOPERAMIDE 2 MG CAP PO PRN (18:19)
[2019-10-24] MEDS: metroNIDAZOLE 500 MG TAB PO SCH (21:53)
[2019-10-25 04:15] LABS: Basophils % (A) 0 %; Eosinophils # (A) 0.1 k/uL (0-0.7); Eosinophils % (A) 1 %; HCT 32.7 % (34.0-46.0); Lymphocytes # (A) 1.6 k/uL (1.0-4.8); Lymphocytes % (A) 16 %; MCH 25.8 pg (25.0-35.0); MCHC 30.6 g/dL (31.0-37.0); MCV 84.4 fL (80.0-100.0); Mean Platelet Volume 6.6; Monocytes # (A) 0.2 k/uL (0-1.0); Monocytes % (A) 2 %; Neutrophils # (A) 8.5 k/uL (1.3-7.7); Neutrophils % (A) 80 %; Platelet Count 228 k/uL (150-450); RBC 3.87 m/uL (3.80-5.40); RDW 13.6 % (11.5-15.5); WBC 10.6 k/uL (3.8-10.6)
[2019-10-25 04:37] LABS: ALT 26 U/L (4-34); AST 39 U/L (14-36); African American GFR (CKD) >90 (>60 ml/min/1.73 sqM); Albumin 2.5 g/dL (3.5-5.0); Alkaline Phosphatase 67 U/L (38-126); Anion Gap 5 mmol/L; Blood Urea Nitrogen 7 mg/dL (7-17); Carbon Dioxide 23 mmol/L (22-30); Chloride 109 mmol/L (98-107); Glucose 105 mg/dL (74-99); Non-African American GFR(CKD) >90 (>60 ml/min/1.73 sqM); Potassium 3.8 mmol/L (3.5-5.1); Sodium 137 mmol/L (137-145); Total Bilirubin 0.4 mg/dL (0.2-1.3)
[2019-10-25] MEDS ORDERED: POTASSIUM CHLORIDE ER 20 MEQ TAB.ER PO SCH (06:00)
[2019-10-25] MEDS: HYDROmorphone 1 MG/ML 1 ML SYRINGE IVP PRN ×2 (06:02→21:42)
[2019-10-25] MEDS: ONDANSETRON 4 MG/2 ML VIAL IVP PRN ×2 (06:07→21:48)
[2019-10-25] MEDS: SODIUM CHLORIDE 0.9% 1,000 ML IV SCH (06:11)
[2019-10-25] MEDS: IPRATROPIUM-ALBUTEROL 3 ML NEB INHALATION SCH ×4 (06:58→19:46)
[2019-10-25] MEDS: PIPERACILLIN-TAZOBACTAM 3.375 GM in SODIUM CHLORIDE 0.9% 100 ML IVPB SCH (08:32)
[2019-10-25] MEDS: DOCUSATE 100 MG CAP PO SCH (08:33)
[2019-10-25] MEDS: metroNIDAZOLE 500 MG TAB PO SCH ×3 (08:33→22:25)
[2019-10-25] MEDS: PANTOPRAZOLE 40 MG/10 ML VIAL IV SCH (08:33)
[2019-10-25] MEDS: HEPARIN SODIUM,PORCINE 5,000 UNIT/ML 1 ML VIAL SQ SCH ×2 (08:33→20:34)
[2019-10-25] MEDS: VANCOMYCIN 1,500 MG in SODIUM CHLORIDE 0.9% 250 ML IVPB SCH (08:54)
--- NOTE | 2019-10-25 10:49 | P.PN ---
Subjective Progress Note Date: 10/25/19 Johanne Cooney is a 33-year-old female patient of Dr. Guzmán who presented to the ER after taking an increased amount of [place] and Valium at home. Patient reports that she had liposuction with abdominoplasty and breast augmentation on 10/20/2019 and that her pain was not well controlled so she kept taking the [place] and Valium. Patient reports that her mom and were concerned and decided to bring her to the ER. Patient isn't able to recall exactly how much medication she took. Patient denies that she was trying to harm herself. Patient denies any history of suicidal ideation. Acetaminophen level 70.7 on admission. Patient has been started on IV Mucomyst per ED and posion control recommendation. At this time patient has been admitted to the intensive care unit with critical care service is following. Patient reports some nausea and increased sleepiness. Patient does wake up to follow commands and answer questions but quickly falls back to sleep. Additional medical history includes asthma and . Vitals currently stable. At this time patient denies any chest pain or shortness of breath. Patient denies any burning or frequency. On 10/23/2019 patient was seen and examined in ICU, she is alert and oriented 3 in no apparent distress, she is complaining of some dizziness and headache otherwise she denies any complaints there is no fever or chills no chest pain no shortness of breath no cough no nausea or vomiting no abdominal pain no diarrhea no burning with urination no frequency or urgency no hematuria she is tolerating diet well. On 10/24/2019 patient was seen and examined in the intensive care unit she is alert and oriented 3 in no apparent distress she developed high fever through the night and had elevated lactic acid she was given IV fluid and was started on IV antibiotic, blood culture and chest x-ray were done, most likely cause of fever is possible aspiration, liver enzymes are improving, clinically patient is still complaining of pain mostly at the site of her surgery, otherwise she denies any complaints there is no chest pain no shortness of breath there is minimal cough no nausea or vomiting no abdominal pain no diarrhea and no urinary symptoms On 10/25/2019 patient remains in the intensive care unit. Patient is alert and oriented 3. Patient was positive for C. diff. Infectious disease has been consulted. Patient currently on IV Vanco and oral Flagyl with concerns of possible aspiration pneumonia also. Pulmonary services are following. Patient denies any chest pain or shortness of breath. Lactic acid has improved to 1.4. Patient still having low-grade temps. Patient denies any urinary burning or frequency Objective - Vital Signs Vital signs: Vital Signs Temp 98.3 F 10/25/19 10:00 Pulse 120 H 10/25/19 10:00 Resp 27 H 10/25/19 10:00 BP 108/67 10/25/19 10:00 Pulse Ox 96 10/25/19 10:00 Intake & Output 10/24/19 10/25/19 10/25/19 18:59 06:59 18:59 Intake Total 2900 1350 400 Output Total 1100 Balance 1800 1350 400 Weight 98.2 kg Intake: IV 2900 1350 400 .9 1200 1000 200 0.9 NACL bolus 1000 Zosyn 200 100 100 vancomycin 500 250 100 Output: Urine 1100 Other: Voiding Method Toilet Toilet Toilet # Voids 1 1 1 # Bowel Movements 2 1 1 - Exam In general patient is alert and oriented 3 in no apparent distress Head normocephalic and atraumatic Neck supple no JVD no goiter Lungs clear to auscultation bilaterally no wheezing or crackles Heart regular rate and rhythm S1-S2, no rub or gallop Abdomen is soft nontender nondistended positive bowel sounds no hepatosplenomegaly Extremities no edema no cyanosis or clubbing Neuro no gross focal neurological deficit - Labs CBC & Chem 7: 10/25/19 03:55 10/25/19 03:55 Labs: Abnormal Lab Results - Last 24 Hours (Table) 10/24/19 10/25/19 10/25/19 Range/Units 17:02 03:55 03:55 Hgb 10.0 L (11.4-16.0) gm/dL Hct 32.7 L (34.0-46.0) % MCHC 30.6 L (31.0-37.0) g/dL Neutrophils # 8.5 H (1.3-7.7) k/uL Chloride 109 H (98-107) mmol/L Creatinine 0.51 L (0.52-1.04) mg/dL Glucose 105 H (74-99) mg/dL Calcium 8.0 L (8.4-10.2) mg/dL AST 39 H (14-36) U/L Total Protein 5.0 L (6.3-8.2) g/dL Albumin 2.5 L (3.5-5.0) g/dL C. difficile (EIA) Intrp Positive A (Negative) Assessment and Plan Assessment: 1. Accidental Tylenol overdose. Patient unable to recall how much [place] and Valium she took. Patient denies any suicidal ideation patient reports she was trying to control her pain postoperatively. Tylenol level 70.7. Patient admitted to the intensive care unit. Critical care services have been consulted. Mucomyst IV ordered per poison control recommendation 2. Recent cosmetic procedure on 10/20/2019. She reports that she had abdominoplasty with liposuction and breast augmentation 3. History of asthma. No exacerbation at this time 4. History of 5. Possible bibasilar pneumonia. Pulmonary services are following. Infectious disease has been consulted. Patient remains on vancomycin and Zosyn 6. Stool for C. diff positive. Patient started on oral Flagyl. Infectious disease has been consulted DVT prophylaxis heparin. GI prophylaxis Protonix. Patient admitted to the intensive care unit Dr. Makayla garcia for critical care. Infectious disease consulted I performed an examination of the patient and discussed their management with the Nurse Practitioner. I have reviewed the Nurse Practitioner's notes and agree with the documented findings and plan of care
--- NOTE | 2019-10-25 11:39 | P.PN ---
Subjective Progress Note Date: 10/25/19 Principal diagnosis: Accidental overdose This is a very pleasant 33-year-old female patient who had undergone significant cosmetic surgery on 10/20/2018 at the surgical center in [place]. She had undergone liposuction of the thighs, hernia repair, abdominoplasty, breast augmentation and left. She was discharged home on pain medications. The following day she had significant pain and took all of her pain medication at one time including [place] and Valium. She became quite obtunded and was brought into the emergency room here on October 22 approximately 11 AM. Denying any s uicide attempt. The pain was just too unbearable. She is seen again today 10/25/2019 in follow-up in the intensive care unit. Yesterday she did spike a temperature. She was on Keflex in the outpatient setting. She was initiated on vancomycin and Zosyn. Chest x-ray revealed bibasilar infiltrates with a small left effusion Blood cultures thus far are negative. Her surgical site are clean. She's currently afebrile. Maintaining O2 saturations in the 90s on room air. Slightly tachycardic. Influenza screen negative. She did develop diarrhea and is positive for C. difficile colitis. White count 10.6. Hemoglobin 10.0. Sodium 137. Potassium 3.8. Creatinine 0.51. Objective - Vital Signs Vital signs: Vital Signs Temp 98.3 F 10/25/19 10:00 Pulse 102 H 10/25/19 11:22 Resp 27 H 10/25/19 10:00 BP 108/67 10/25/19 10:00 Pulse Ox 96 10/25/19 10:00 Intake & Output 10/24/19 10/25/19 10/25/19 18:59 06:59 18:59 Intake Total 2900 1350 400 Output Total 1100 Balance 1800 1350 400 Weight 98.2 kg Intake: IV 2900 1350 400 .9 1200 1000 200 0.9 NACL bolus 1000 Zosyn 200 100 100 vancomycin 500 250 100 Output: Urine 1100 Other: Voiding Method Toilet Toilet Toilet # Voids 1 1 1 # Bowel Movements 2 1 1 - Exam GENERAL EXAM: Alert, pleasant 33-year-old female patient on room air, comfortable in no apparent distress. HEAD: Normocephalic. EYES: Normal reaction of pupils, equal size. NOSE: Clear with pink turbinates. THROAT: No erythema or exudates. NECK: No masses, no JVD. CHEST: Dressing is dry and intact. No chest wall deformity. LUNGS: Equal air entry with crackles in the posterior bases. CVS: S1 and S2 normal with no audible murmur, regular rhythm. ABDOMEN: Dressing dry and intact. No hepatosplenomegaly, normal bowel sounds, no guarding or rigidity. SPINE: No scoliosis or deformity SKIN: No rashes CENTRAL NERVOUS SYSTEM: No focal deficits, tone is normal in all 4 extremities. EXTREMITIES: Dressings dry and intact. There is no peripheral edema. No clubbing, no cyanosis. Peripheral pulses are intact. - Labs CBC & Chem 7: 10/25/19 03:55 10/25/19 03:55 Labs: Abnormal Lab Results - Last 24 Hours (Table) 10/24/19 10/25/19 10/25/19 Range/Units 17:02 03:55 03:55 Hgb 10.0 L (11.4-16.0) gm/dL Hct 32.7 L (34.0-46.0) % MCHC 30.6 L (31.0-37.0) g/dL Neutrophils # 8.5 H (1.3-7.7) k/uL Chloride 109 H (98-107) mmol/L Creatinine 0.51 L (0.52-1.04) mg/dL Glucose 105 H (74-99) mg/dL Calcium 8.0 L (8.4-10.2) mg/dL AST 39 H (14-36) U/L Total Protein 5.0 L (6.3-8.2) g/dL Albumin 2.5 L (3.5-5.0) g/dL C. difficile (EIA) Intrp Positive A (Negative) Microbiology - Last 24 Hours (Table) 10/24/19 08:21 Blood Culture - Preliminary Blood No Growth after 24 hours 10/24/19 08:21 Blood Culture - Preliminary Blood No Growth after 24 hours Assessment and Plan Assessment: 1 Altered mental status secondary to accidental overdose of [place] and Valium 2 Cosmetic surgery including breast augmentation and lift, abdominoplasty, hernia repair, liposuction on 10/20/2019 in [place] 3 Febrile illness and tachycardia with possible bibasilar pneumonia initiated on Zosyn and vancomycin on 10/24/2019 4 C. difficile colitis switched to oral vancomycin and Flagyl. 5 History of mild intermittent chronic bronchial asthma Plan The patient was seen and evaluated by Dr. Mauro. She is currently stable from the pulmonary and critical care standpoint. Adequate pain control. Continued on vancomycin, Zosyn, Flagyl. Continue bronchodilators. She is again educated regarding the increased use of the incentive spirometer and cough and deep breathing exercises. We will increase her activity as tolerated. We'll continue to follow make further recommendations based on her clinical status. I, the cosigning physician, performed a history & physical examination of the patient. Lungs sounds with crackles in the bilateral posterior bases. Maintaining good O2 saturations in the 90s on room air. I discussed the assessment and plan of care with my nurse practitioner, Dalia King. I attest to the above note as dictated by her.
[2019-10-25] MEDS ORDERED: SODIUM CHLORIDE 0.9% 1,000 ML IV SCH (12:00)
[2019-10-25] MEDS: VANCOMYCIN ORAL SOLUTION 250 MG/5 ML BOTTLE PO SCH ×2 (12:27→20:35)
[2019-10-25] MEDS ORDERED: VANCOMYCIN TROUGH DUE 1 EACH MISC MISCELLANE ONE (15:00)
[2019-10-25] MEDS: KETOROLAC 30 MG/ML 1 ML VIAL IVP PRN (15:36)
--- NOTE | 2019-10-25 23:47 | P.CONS ---
History of Present Illness - Reason for Consult Consult date: 10/25/19 c diff colitis Requesting physician: Moises Osullivan - Chief Complaint diarrhea x few days - History of Present Illness Patient is a 33-year-old female who recently did have liposuction abdominoplasty and breast augmentation done on 10/20/2019 patient apparently has been taking [place] and waning to control her pain and is not clear how many tablets she has taken subsequently patient was noted to be lethargic and mental status changes patient was brought into the ER by her and mom patient on arrival to the ER noticed to have elevated Tylenol level of 70.7 patient was started on IV Mucomyst per ED and subsequently has been admitted to the ICU on presentation the hospital patient was afebrile subsequently started spiking fever of 102 -103 F patient also noticed to have significant diarrhea patient white count was elevated yesterday 13.2 UA was negative Tylenol level start 18.9 influenza serology was negative however stool for C. difficile was positive that prompted this infectious disease consultation patient mentions she has been going multiple times to the bathroom since her surgery she has mostly liquidy stools low-grade mucus into it denies significant abdominal pain though and no urinary symptoms. Review of Systems Positive point has been mentioned in HPI rest of the systems are negative Past Medical History Past Medical History: Asthma Additional Past Medical History / Comment(s): Exercise induced asthma, History of Any Multi-Drug Resistant Organisms: None Reported Past Surgical History: Section Additional Past Surgical History / Comment(s): rhinoplasty, Abdominal plasty & breast augmentation on 10/20/19 Past Anesthesia/Blood Transfusion Reactions: Motion Sickness, Postoperative Nausea & Vomiting (PONV) Past Psychological History: No Psychological Hx Reported Smoking Status: Never smoker Past Alcohol Use History: None Reported Past Drug Use History: None Reported - Past Family History Mother Family Medical History: Cancer Additional Family Medical History / Comment(s): Breast Father Family Medical History: Cancer Additional Family Medical History / Comment(s): Prostate Brother(s) Additional Family Medical History / Comment(s): Alive and well Medications and Allergies Home Medications Medication Instructions Recorded Confirmed Type Albuterol Sulfate [Proair Hfa] 1 - 2 puff INHALATION RT-Q6H PRN 10/22/19 10/22/19 History Cephalexin [Keflex] 500 mg PO Q8H PRN 10/22/19 10/22/19 History Diazepam [Valium] 5 mg PO Q8H PRN 10/22/19 10/22/19 History Docusate [Colace] 100 mg PO DAILY 10/22/19 10/22/19 History HYDROcodone/APAP 5-325MG [[place] 1 - 2 tab PO Q4H PRN 10/22/19 10/22/19 History 5-325] Allergies Allergy/AdvReac Type Severity Reaction Status Date / Time alcohol Allergy Unknown Verified 10/22/19 12:33 [From Mastisol Adhesive] gum mastic Allergy Unknown Verified 10/22/19 12:33 [From Mastisol Adhesive] methyl salicylate Allergy Unknown Verified 10/22/19 12:33 [From Mastisol Adhesive] storax Allergy Unknown Verified 10/22/19 12:33 [From Mastisol Adhesive] Physical Exam Vitals: Vital Signs Temp Pulse Resp BP Pulse Ox 10/25/19 11:22 102 H 10/25/19 11:12 110 H 10/25/19 10:00 98.3 F 120 H 27 H 108/67 96 10/25/19 09:00 114 H 24 120/62 95 10/25/19 08:00 115 H 28 H 112/66 94 L 10/25/19 07:08 110 H 10/25/19 07:00 111 H 23 133/78 98 10/25/19 06:58 114 H 10/25/19 06:00 121 H 20 120/73 95 10/25/19 05:00 116 H 22 128/86 91 L 10/25/19 04:00 99.9 F H 120 H 35 H 120/78 92 L 10/25/19 03:00 117 H 34 H 121/75 93 L 10/25/19 02:00 120 H 24 122/79 91 L 10/25/19 01:00 122 H 20 121/71 93 L 10/25/19 00:00 99.5 F 120 H 22 121/72 94 L 10/24/19 23:00 112 H 20 120/60 94 L 10/24/19 22:00 98.7 F 116 H 22 117/68 96 10/24/19 21:00 124 H 20 118/63 95 10/24/19 20:22 114 H 10/24/19 20:15 107 H 10/24/19 20:00 100 F H 116 H 20 111/66 92 L 10/24/19 19:00 118 H 30 H 126/88 91 L 10/24/19 18:00 98.5 F 131 H 45 H 121/85 95 10/24/19 17:00 122 H 23 123/69 95 10/24/19 16:16 124 H 10/24/19 16:00 99.0 F 125 H 19 120/70 94 L 10/24/19 15:00 103.2 F H 128 H 46 H 120/70 99 10/24/19 14:00 125 H 37 H 121/78 95 10/24/19 13:00 99.8 F H 124 H 20 118/86 95 10/24/19 12:40 124 H 10/24/19 12:30 124 H 10/24/19 12:00 122 H 32 H 108/55 94 L Intake and Output 10/24/19 10/25/19 10/25/19 22:59 06:59 14:59 Intake Total 1050 1050 400 Balance 1050 1050 400 Intake: IV 1050 1050 400 .9 700 700 200 Zosyn 100 100 100 vancomycin 250 250 100 Other: Voiding Method Toilet Toilet Toilet # Voids 1 1 1 # Bowel Movements 1 1 1 Weight 98.2 kg GENERAL DESCRIPTION: Middle-aged female lying in bed, no distress. No tachypnea or accessory muscle of respiration use. HEENT: Shows Pallor , no scleral icterus. Oral mucous membrane is dry. NECK: Trachea central, no thyromegaly. LUNGS: Unlabored breathing. Clear to auscultation anteriorly. No wheeze or crackle. HEART: S1, S2, regular rate and rhythm. ABDOMEN: Soft, no tenderness , guarding or rigidity EXTREMITIES: No edema of feet. SKIN: No rash, no masses palpable. NEUROLOGICAL: The patient is awake, alert, oriented x3, mood and affect normal. Results CBC & Chem 7: 10/25/19 03:55 10/25/19 03:55 Labs: Abnormal Lab Results - Last 24 Hours (Table) 10/24/19 10/25/19 10/25/19 Range/Units 17:02 03:55 03:55 Hgb 10.0 L (11.4-16.0) gm/dL Hct 32.7 L (34.0-46.0) % MCHC 30.6 L (31.0-37.0) g/dL Neutrophils # 8.5 H (1.3-7.7) k/uL Chloride 109 H (98-107) mmol/L Creatinine 0.51 L (0.52-1.04) mg/dL Glucose 105 H (74-99) mg/dL Calcium 8.0 L (8.4-10.2) mg/dL AST 39 H (14-36) U/L Total Protein 5.0 L (6.3-8.2) g/dL Albumin 2.5 L (3.5-5.0) g/dL C. difficile (EIA) Intrp Positive A (Negative) Microbiology - Last 24 Hours (Table) 10/24/19 08:21 Blood Culture - Preliminary Blood No Growth after 24 hours 10/24/19 08:21 Blood Culture - Preliminary Blood No Growth after 24 hours Assessment and Plan Assessment: -patient admitted hospital with unintentional overdose on her pain medication with excessive Tylenol level and this patient subsequent did have a fever with e levated white count possibly related to Tylenol toxicity however he did have significant diarrhea now with stool for C. difficile positive more likely combination of C. difficile colitis (1) C. difficile colitis Current Visit: Yes Status: Acute Code(s): A04.72 - ENTEROCOLITIS D/T CLOSTRIDIUM DIFFICILE, NOT SPCF RECUR SNOMED Code(s): 392354457 Plan: 1-vancomycin 250 milligrams p.o. every 6 hours 2-we will add Questran if the pt did have persistent diarrhea by tomorrow 3-IV fluid We will follow on clinical condition and cultures to further adjust medication if needed Thank you for this consultation we will follow the patient along with you Time with Patient: Greater than 30
[2019-10-26] MEDS: VANCOMYCIN ORAL SOLUTION 250 MG/5 ML BOTTLE PO SCH ×4 (02:02→17:55)
[2019-10-26] MEDS: CHERRY FLAVOR 60 ML BOTTLE PO PRN ×4 (02:02→17:55)
[2019-10-26] MEDS: KETOROLAC 30 MG/ML 1 ML VIAL IVP PRN ×2 (05:26→17:49)
[2019-10-26 05:57] LABS: Basophils % (A) 0 %; Eosinophils # (A) 0.2 k/uL (0-0.7); Eosinophils % (A) 2 %; HCT 32.7 % (34.0-46.0); HGB 9.8 gm/dL (11.4-16.0); Hypochromasia Moderate; Lymphocytes # (A) 1.7 k/uL (1.0-4.8); Lymphocytes % (A) 17 %; MCH 26.4 pg (25.0-35.0); MCHC 30.2 g/dL (31.0-37.0); MCV 87.6 fL (80.0-100.0); Mean Platelet Volume 6.9; Monocytes # (A) 0.3 k/uL (0-1.0); Monocytes % (A) 3 %; Neutrophils # (A) 7.6 k/uL (1.3-7.7); Neutrophils % (A) 76 %; Platelet Count 235 k/uL (150-450); RBC 3.73 m/uL (3.80-5.40); RDW 13.6 % (11.5-15.5)
[2019-10-26 06:11] LABS: ALT 32 U/L (4-34); AST 38 U/L (14-36); African American GFR (CKD) >90 (>60 ml/min/1.73 sqM); Albumin 2.7 g/dL (3.5-5.0); Alkaline Phosphatase 77 U/L (38-126); Anion Gap 5 mmol/L; Blood Urea Nitrogen 9 mg/dL (7-17); Calcium 8.3 mg/dL (8.4-10.2); Carbon Dioxide 24 mmol/L (22-30); Chloride 110 mmol/L (98-107); Glucose 101 mg/dL (74-99); Non-African American GFR(CKD) >90 (>60 ml/min/1.73 sqM); Sodium 139 mmol/L (137-145); Total Bilirubin 0.3 mg/dL (0.2-1.3); Total Protein 5.4 g/dL (6.3-8.2)
[2019-10-26] MEDS: IPRATROPIUM-ALBUTEROL 3 ML NEB INHALATION SCH ×4 (07:59→20:14)
[2019-10-26] MEDS: HEPARIN SODIUM,PORCINE 5,000 UNIT/ML 1 ML VIAL SQ SCH ×2 (09:22→21:20)
[2019-10-26] MEDS: PANTOPRAZOLE 40 MG/10 ML VIAL IV SCH (09:22)
--- NOTE | 2019-10-26 09:35 | P.PN ---
Subjective Progress Note Date: 10/26/19 Principal diagnosis: Unintentional Tylenol overdose, C. diff infection On 10/26/2019 patient seen in follow-up in the intensive care unit, she sits up in the recliner, in no acute distress, she is awake and alert, oriented 3, no complaints of difficulty breathing, no chest pain, hemodynamically patient is stable, she is currently on Flagyl and oral vancomycin for C. difficile colitis, still having some episodes of diarrhea. Pain is under reasonable control, patient is working on incentive spirometer, lung sounds are clear to auscultation, patient is on room air, today's labs have been reviewed showing white blood cell count of 10.0, hemoglobin is 9.8, sodium is 139, potassium is 4.0, chloride is 110, BUN is 9 and creatinine is 0.46, patient is tolerating oral intake although her appetite remains poor. She has been ambulating to the bathroom, tolerating activity fairly well. Objective - Vital Signs Vital signs: Vital Signs Temp 98.5 F 10/26/19 09:00 Pulse 99 10/26/19 09:00 Resp 18 10/26/19 09:00 BP 114/73 10/26/19 09:00 Pulse Ox 95 10/26/19 09:00 Intake & Output 10/25/19 10/26/19 10/26/19 18:59 06:59 18:59 Intake Total 400 1100 Output Total 3 2 Balance 397 1098 Weight 98.3 kg Intake: IV 400 .9 200 Zosyn 100 vancomycin 100 Oral 1100 Output: Urine 1 Stool 2 2 Other: Voiding Method Toilet Toilet # Voids 1 1 # Bowel Movements 1 - Exam GENERAL EXAM: Alert, very pleasant, 33-year-old female, on room air, comfortable in no apparent distress. HEAD: Normocephalic/atraumatic. EYES: Normal reaction of pupils, equal size. Conjunctiva pink, sclera white. NOSE: Clear with pink turbinates. THROAT: No erythema or exudates. NECK: No masses, no JVD, no thyroid enlargement, no adenopathy. CHEST: No chest wall deformity. Symmetrical expansion. LUNGS: Equal air entry with no crackles, wheeze, rhonchi or dullness. CVS: Regular rate and rhythm, normal S1 and S2, no gallops, no murmurs, no rubs ABDOMEN: Soft, tender, status post abdominoplasty. Abdominal wall is tender, patient has abdominal binder in place. No hepatosplenomegaly, normal bowel sounds, no guarding or rigidity. EXTREMITIES: No clubbing, no edema, no cyanosis, 2+ pulses and upper and lower extremities. MUSCULOSKELETAL: Muscle strength and tone normal. SPINE: No scoliosis or deformity SKIN: No rashes CENTRAL NERVOUS SYSTEM: Alert and oriented -3. No focal deficits, tone is normal in all 4 extremities. PSYCHIATRIC: Alert and oriented -3. Appropriate affect. Intact judgment and insight. - Labs CBC & Chem 7: 10/26/19 05:06 10/26/19 05:06 Labs: Abnormal Lab Results - Last 24 Hours (Table) 10/26/19 10/26/19 Range/Units 05:06 05:06 RBC 3.73 L (3.80-5.40) m/uL Hgb 9.8 L (11.4-16.0) gm/dL Hct 32.7 L (34.0-46.0) % MCHC 30.2 L (31.0-37.0) g/dL Chloride 110 H (98-107) mmol/L Creatinine 0.46 L (0.52-1.04) mg/dL Glucose 101 H (74-99) mg/dL Calcium 8.3 L (8.4-10.2) mg/dL AST 38 H (14-36) U/L Total Protein 5.4 L (6.3-8.2) g/dL Albumin 2.7 L (3.5-5.0) g/dL Microbiology - Last 24 Hours (Table) 10/24/19 08:21 Blood Culture - Preliminary Blood No Growth after 24 hours 10/24/19 08:21 Blood Culture - Preliminary Blood No Growth after 24 hours Assessment and Plan Plan: Assessment: 1 Altered mental status secondary to accidental overdose of [place] and Valium, recovered 2 Cosmetic surgery including breast augmentation and lift, abdominoplasty, hernia repair, liposuction on 10/20/2019 in [place] 3 Febrile illness and tachycardia with possible bibasilar pneumonia initiated on Zosyn and vancomycin on 10/24/2019 4 C. difficile colitis switched to oral vancomycin and Flagyl. 5 History of mild intermittent chronic bronchial asthma Plan: Patient denies any shortness of breath, continue encouraging deep breathing and coughing, yesterday we discontinued all IV antibiotics including Zosyn and vancomycin, doubt pneumonia, suspected bibasilar atelectasis, maintaining stable oxygenation, increase activity as tolerated, continue with oral vancomycin for C. diff colitis, discontinue Flagyl, increase activity as tolerated, anticipate transfer out of intensive care unit today to general medical floor I performed a history & physical examination of the patient and discussed their management with my nurse practitioner, Lori López. I reviewed the nurse practitioner's note and agree with the documented findings and plan of care. Lung sounds are positive for clear breath sounds. The findings and the impression was discussed with the patient. I attest to the documentation by the nurse practitioner. Time with Patient: Less than 30
--- NOTE | 2019-10-26 11:06 | P.PN ---
Subjective Progress Note Date: 10/26/19 Johanne Cooney is a 33-year-old female patient of Dr. Guzmán who presented to the ER after taking an increased amount of [place] and Valium at home. Patient reports that she had liposuction with abdominoplasty and breast augmentation on 10/20/2019 and that her pain was not well controlled so she kept taking the [place] and Valium. Patient reports that her mom and were concerned and decided to bring her to the ER. Patient isn't able to recall exactly how much medication she took. Patient denies that she was trying to harm herself. Patient denies any history of suicidal ideation. Acetaminophen level 70.7 on admission. Patient has been started on IV Mucomyst per ED and posion control recommendation. At this time patient has been admitted to the intensive care unit with critical care service is following. Patient reports some nausea and increased sleepiness. Patient does wake up to follow commands and answer questions but quickly falls back to sleep. Additional medical history includes asthma and . Vitals currently stable. At this time patient denies any chest pain or shortness of breath. Patient denies any burning or frequency. On 10/23/2019 patient was seen and examined in ICU, she is alert and oriented 3 in no apparent distress, she is complaining of some dizziness and headache otherwise she denies any complaints there is no fever or chills no chest pain no shortness of breath no cough no nausea or vomiting no abdominal pain no diarrhea no burning with urination no frequency or urgency no hematuria she is tolerating diet well. On 10/24/2019 patient was seen and examined in the intensive care unit she is alert and oriented 3 in no apparent distress she developed high fever through the night and had elevated lactic acid she was given IV fluid and was started on IV antibiotic, blood culture and chest x-ray were done, most likely cause of fever is possible aspiration, liver enzymes are improving, clinically patient is still complaining of pain mostly at the site of her surgery, otherwise she denies any complaints there is no chest pain no shortness of breath there is minimal cough no nausea or vomiting no abdominal pain no diarrhea and no urinary symptoms On 10/25/2019 patient remains in the intensive care unit. Patient is alert and oriented 3. Patient was positive for C. diff. Infectious disease has been consulted. Patient currently on IV Vanco and oral Flagyl with concerns of possible aspiration pneumonia also. Pulmonary services are following. Patient denies any chest pain or shortness of breath. Lactic acid has improved to 1.4. Patient still having low-grade temps. Patient denies any urinary burning or frequency On 10/26/2019 patient is alert and oriented 3. Patient has been downgraded from intensive care unit to [facility]. Patient is still having loose stools. Patient has been switched to oral Flagyl. IV Vanco has been DC'd. Discussed with pulmonary team at this time doubt pneumonia. Infectious disease is following. Patient denies chest pain. Patient denies shortness of breath. Incentive spirometer encouraged. Patient is to having loose stools. Patient denies nausea or vomiting. Patient denies any urinary burning or frequency Objective - Vital Signs Vital signs: Vital Signs Temp 98.5 F 10/26/19 09:00 Pulse 99 10/26/19 09:00 Resp 18 10/26/19 09:00 BP 114/73 10/26/19 09:00 Pulse Ox 95 10/26/19 09:00 Intake & Output 10/25/19 10/26/19 10/26/19 18:59 06:59 18:59 Intake Total 400 1100 Output Total 3 2 Balance 397 1098 Weight 98.3 kg Intake: IV 400 .9 200 Zosyn 100 vancomycin 100 Oral 1100 Output: Urine 1 Stool 2 2 Other: Voiding Method Toilet Toilet # Voids 1 1 # Bowel Movements 1 - Exam In general patient is alert and oriented 3 in no apparent distress Head normocephalic and atraumatic Neck supple no JVD no goiter Lungs clear to auscultation bilaterally no wheezing or crackles Heart regular rate and rhythm S1-S2, no rub or gallop Abdomen is soft nontender nondistended positive bowel sounds no hepatosplenomegaly Extremities no edema no cyanosis or clubbing Neuro no gross focal neurological deficit - Labs CBC & Chem 7: 10/26/19 05:06 10/26/19 05:06 Labs: Abnormal Lab Results - Last 24 Hours (Table) 10/26/19 10/26/19 Range/Units 05:06 05:06 RBC 3.73 L (3.80-5.40) m/uL Hgb 9.8 L (11.4-16.0) gm/dL Hct 32.7 L (34.0-46.0) % MCHC 30.2 L (31.0-37.0) g/dL Chloride 110 H (98-107) mmol/L Creatinine 0.46 L (0.52-1.04) mg/dL Glucose 101 H (74-99) mg/dL Calcium 8.3 L (8.4-10.2) mg/dL AST 38 H (14-36) U/L Total Protein 5.4 L (6.3-8.2) g/dL Albumin 2.7 L (3.5-5.0) g/dL Microbiology - Last 24 Hours (Table) 10/24/19 08:21 Blood Culture - Preliminary Blood No Growth after 48 hours 10/24/19 08:21 Blood Culture - Preliminary Blood No Growth after 48 hours Assessment and Plan Assessment: 1. Accidental Tylenol overdose. Patient unable to recall how much [place] and Valium she took. Patient denies any suicidal ideation patient reports she was trying to control her pain postoperatively. Tylenol level 70.7. Patient admitted to the intensive care unit. Critical care services have been consulted. Mucomyst IV ordered per poison control recommendation 2. Recent cosmetic procedure on 10/20/2019. She reports that she had abdominoplasty with liposuction and breast augmentation 3. History of asthma. No exacerbation at this time 4. History of 5. Possible bibasilar pneumonia. Pulmonary services are following. Infectious disease has been consulted. Patient remains on vancomycin and Zosyn. Discussed case with pulmonary team doubt pneumonia at this time. IV antibiotics have been DC'd 6. Stool for C. diff positive. Patient started on oral Vanco. Infectious disease has been consulted DVT prophylaxis heparin. GI prophylaxis Protonix. Patient admitted to the intensive care unit Pulmonary and infectious disease following I performed an examination of the patient and discussed their management with the Nurse Practitioner. I have reviewed the Nurse Practitioner's notes and agree with the documented findings and plan of care
--- NOTE | 2019-10-26 21:07 | PN ---
PROGRESS NOTE DATE OF SERVICE: 10/26/2019 REASON FOR FOLLOWUP: C difficile colitis. INTERVAL HISTORY: The patient is currently afebrile. The patient is breathing comfortably. The patient denies having any chest pain or any cough. Abdominal pain has improved. The diarrhea has slowed down. Denies any pain to her incision site on the breast or the lower abdomen. PHYSICAL EXAMINATION: Blood pressure 114/73 with a pulse of 100. Temperature 98.5. He is 95% on room air. General description is a middle-aged female up in the chair in no distress. Respiratory system: Unlabored breathing. Clear to auscultation anteriorly. Heart S1, S2. Regular rate and rhythm. ABDOMEN: Soft. The abdominal as well as the breast incision site looks clean with no evidence of cellulitis. EXTREMITIES are no edema of the feet. LABS: Hemoglobin 9.8, white count 10, BUN of 9, creatinine 0.46. DIAGNOSTIC IMPRESSION AND PLAN: Patient with C difficile colitis, p.o. vancomycin will be continued. We will monitor clinical course closely. Duration of antibiotic should be 10 days. Continue supportive care. She has been advised to increase probiotic/yogurt intake. MMODL / IJN: [id number] / MTDD
[2019-10-27] MEDS: VANCOMYCIN ORAL SOLUTION 250 MG/5 ML BOTTLE PO SCH ×3 (00:33→12:07)
[2019-10-27] MEDS: CHERRY FLAVOR 60 ML BOTTLE PO PRN ×2 (00:33→06:22)
[2019-10-27] MEDS: KETOROLAC 30 MG/ML 1 ML VIAL IVP PRN (06:21)
[2019-10-27 06:28] LABS: Basophils % (A) 1 %; Eosinophils # (A) 0.3 k/uL (0-0.7); Eosinophils % (A) 3 %; HCT 30.8 % (34.0-46.0); HGB 9.6 gm/dL (11.4-16.0); Lymphocytes # (A) 2.3 k/uL (1.0-4.8); Lymphocytes % (A) 27 %; MCH 26.4 pg (25.0-35.0); MCHC 31.1 g/dL (31.0-37.0); Monocytes # (A) 0.3 k/uL (0-1.0); Monocytes % (A) 4 %; Neutrophils # (A) 5.3 k/uL (1.3-7.7); Neutrophils % (A) 62 %; Platelet Count 260 k/uL (150-450); RBC 3.63 m/uL (3.80-5.40); RDW 13.5 % (11.5-15.5); WBC 8.4 k/uL (3.8-10.6)
[2019-10-27 06:41] LABS: ALT 31 U/L (4-34); AST 35 U/L (14-36); African American GFR (CKD) >90 (>60 ml/min/1.73 sqM); Alkaline Phosphatase 98 U/L (38-126); Anion Gap 6 mmol/L; Blood Urea Nitrogen 10 mg/dL (7-17); Calcium 8.4 mg/dL (8.4-10.2); Carbon Dioxide 27 mmol/L (22-30); Chloride 108 mmol/L (98-107); Glucose 86 mg/dL (74-99); Non-African American GFR(CKD) >90 (>60 ml/min/1.73 sqM); Potassium 3.7 mmol/L (3.5-5.1); Sodium 141 mmol/L (137-145); Total Bilirubin 0.4 mg/dL (0.2-1.3); Total Protein 5.9 g/dL (6.3-8.2)
[2019-10-27 06:42] VITALS: RESP 18; TEMP 98.1
[2019-10-27 07:49] VITALS: BP 119/63
[2019-10-27] MEDS: IPRATROPIUM-ALBUTEROL 3 ML NEB INHALATION SCH ×2 (08:32→13:05)
[2019-10-27] MEDS ORDERED: PANTOPRAZOLE 40 MG TABLET PO SCH (09:00)
[2019-10-27] MEDS: HEPARIN SODIUM,PORCINE 5,000 UNIT/ML 1 ML VIAL SQ SCH (09:53)
--- NOTE | 2019-10-27 10:36 | P.PN ---
Subjective Progress Note Date: 10/27/19 On 10/27/2019 the patient is doing well. No specific complaints. Diarrhea has subsided. The patient is on oral vancomycin. No nausea. No vomiting. No abdominal pain. No chest pain. Incisions and all of the surgical wound site over the anterior abdominal wall has been clean. She is using incentive spirometer. Hemodynamically stable. No other specific complaints for now. She is using incentive spirometer. She is ambulating. Objective - Vital Signs Vital signs: Vital Signs Temp 98.1 F 10/27/19 06:41 Pulse 102 H 10/27/19 08:44 Resp 18 10/27/19 06:41 BP 122/79 10/27/19 06:41 Pulse Ox 100 10/26/19 16:00 Intake & Output 10/26/19 10/27/19 10/27/19 18:59 06:59 18:59 Intake Total 500 800 Output Total 1 2 Balance 499 798 Weight 98.4 kg Intake: Oral 500 800 Output: Stool 1 2 Other: Voiding Method Toilet Toilet Toilet # Voids 1 2 # Bowel Movements 1 - Exam GENERAL EXAM: Alert, very pleasant, 33-year-old female, on room air, comfortable in no apparent distress. HEAD: Normocephalic/atraumatic. EYES: Normal reaction of pupils, equal size. Conjunctiva pink, sclera white. NOSE: Clear with pink turbinates. THROAT: No erythema or exudates. NECK: No masses, no JVD, no thyroid enlargement, no adenopathy. CHEST: No chest wall deformity. Symmetrical expansion. LUNGS: Equal air entry with no crackles, wheeze, rhonchi or dullness. CVS: Regular rate and rhythm, normal S1 and S2, no gallops, no murmurs, no rubs ABDOMEN: Soft, tender, status post abdominoplasty. Abdominal wall is tender, patient has abdominal binder in place. No hepatosplenomegaly, normal bowel sounds, no guarding or rigidity. EXTREMITIES: No clubbing, no edema, no cyanosis, 2+ pulses and upper and lower extremities. MUSCULOSKELETAL: Muscle strength and tone normal. SPINE: No scoliosis or deformity SKIN: No rashes CENTRAL NERVOUS SYSTEM: Alert and oriented -3. No focal deficits, tone is normal in all 4 extremities. PSYCHIATRIC: Alert and oriented -3. Appropriate affect. Intact judgment and insight. - Labs CBC & Chem 7: 10/27/19 06:20 10/27/19 06:20 Labs: Abnormal Lab Results - Last 24 Hours (Table) 10/27/19 10/27/19 Range/Units 06:20 06:20 RBC 3.63 L (3.80-5.40) m/uL Hgb 9.6 L (11.4-16.0) gm/dL Hct 30.8 L (34.0-46.0) % Chloride 108 H (98-107) mmol/L Total Protein 5.9 L (6.3-8.2) g/dL Albumin 3.0 L (3.5-5.0) g/dL Microbiology - Last 24 Hours (Table) 10/24/19 08:21 Blood Culture - Preliminary Blood No Growth after 48 hours 10/24/19 08:21 Blood Culture - Preliminary Blood No Growth after 48 hours Assessment and Plan Plan: 1 Altered mental status secondary to accidental overdose of [place] and Valium, recovered 2 Cosmetic surgery including breast augmentation and lift, abdominoplasty, hernia repair, liposuction on 10/20/2019 in [place] 3 Febrile illness and tachycardia with possible bibasilar electively change without clear evidence of pneumonia, recovered and the patient is using incentive spirometer 4 C. difficile colitis switched to oral vancomycin 5 History of mild intermittent chronic bronchial asthma plan Complete a course of oral vancomycin. The patient can be discharged out of the intensive care unit. The patient can be discharged home today if cleared by the medical team
[2019-10-27] MEDS: IBUPROFEN 600 MG TAB PO PRN (12:53)
[2019-10-27 13:16] VITALS: PULSE 94
--- NOTE | 2019-10-27 13:41 | P.DS ---
Providers Date of admission: 10/22/19 13:46 Expected date of discharge: 10/27/19 Attending physician: Moises Osullivan Consults: 10/22/19 13:46 Consult Physician Stat Consulting Provider: Josiah Benavides Consult Reason/Comments: tylenol overdose Do you want consulting provider notified?: Already Contacted 10/24/19 18:50 Consult Physician Routine Consulting Provider: Gladis Bundy Consult Reason/Comments: c difficile colitis Do you want consulting provider notified?: Yes, Notify in am Primary care physician: Alla Guzmán Hospital Course: Discharge diagnosis 1. Accidental Tylenol overdose. Patient unable to recall how much [place] and Valium she took. Patient denies any suicidal ideation patient reports she was trying to control her pain postoperatively. Tylenol level 70.7. Patient admitted to the intensive care unit. Critical care services have been consulted. Mucomyst IV ordered per poison control recommendation. Acetaminophen level improving to 18.9 2. Recent cosmetic procedure on 10/20/2019. She reports that she had abdominoplasty with liposuction and breast augmentation 3. History of asthma. No exacerbation at this time 4. History of 5. Possible bibasilar pneumonia ruled out. Pulmonary services are following. Infectious disease has been consulted. Patient remains on vancomycin and Zosyn. Discussed case with pulmonary team doubt pneumonia at this time. IV antibiotics have been DC'd 6. Stool for C. diff positive. Patient started on oral Vanco. Infectious disease has been consulted. Discussed case with infectious disease. Patient may be discharged home. Patient will be discharged home on by mouth vancomycin for 10 days. Hospital course Johanne Cooney is a 33-year-old female patient of Dr. Guzmán who presented to the ER after taking an increased amount of [place] and Valium at home. Patient reports that she had liposuction with abdominoplasty and breast augmentation on 10/20/2019 and that her pain was not well controlled so she kept taking the [place] and Valium. Patient reports that her mom and were concerned and decided to bring her to the ER. Patient isn't able to recall exactly how much medication she took. Patient denies that she was trying to harm herself. Patient denies any history of suicidal ideation. Acetaminophen level 70.7 on admission. Patient has been started on IV Mucomyst per ED and posion control recommendation. At this time patient has been admitted to the intensive care unit with critical care service is following. Patient reports some nausea and increased sleepiness. Patient does wake up to follow commands and answer questions but quickly falls back to sleep. Additional medical history includes asthma and . Vitals currently stable. At this time patient denies any chest pain or shortness of breath. Patient denies any burning or frequency. On 10/23/2019 patient was seen and examined in ICU, she is alert and oriented 3 in no apparent distress, she is complaining of some dizziness and headache otherwise she denies any complaints there is no fever or chills no chest pain no shortness of breath no cough no nausea or vomiting no abdominal pain no diarrhea no burning with urination no frequency or urgency no hematuria she is tolerating diet well. On 10/24/2019 patient was seen and examined in the intensive care unit she is alert and oriented 3 in no apparent distress she developed high fever through the night and had elevated lactic acid she was given IV fluid and was started on IV antibiotic, blood culture and chest x-ray were done, most likely cause of fever is possible aspiration, liver enzymes are improving, clinically patient is still complaining of pain mostly at the site of her surgery, otherwise she denies any complaints there is no chest pain no shortness of breath there is minimal cough no nausea or vomiting no abdominal pain no diarrhea and no urinary symptoms On 10/25/2019 patient remains in the intensive care unit. Patient is alert and oriented 3. Patient was positive for C. diff. Infectious disease has been consulted. Patient currently on IV Vanco and oral Flagyl with concerns of possible aspiration pneumonia also. Pulmonary services are following. Patient denies any chest pain or shortness of breath. Lactic acid has improved to 1.4. Patient still having low-grade temps. Patient denies any urinary burning or frequency On 10/26/2019 patient is alert and oriented 3. Patient has been downgraded from intensive care unit to [facility]. Patient is still having loose stools. Patient has been switched to oral Flagyl. IV Vanco has been DC'd. Discussed with pulmonary team at this time doubt pneumonia. Infectious disease is following. Patient denies chest pain. Patient denies shortness of breath. Incentive spirometer encouraged. Patient is to having loose stools. Patient denies nausea or vomiting. Patient denies any urinary burning or frequency On 10/27/2019 patient is alert and oriented 3. Patient is eager to go home. Patient reports that her bowel movements are now formed she's had 2 no longer mucousy or any abdominal pain. Patient is having minimal pain controlled with ibuprofen. [place] will be DC'd upon discharge. Discussed case with infectious disease. Patient may be discharged home on oral vancomycin for C. diff. Patient has been afebrile. Aspiration pneumonia has been ruled out per pulmonary and infectious disease. Heart rate has improved. Patient has been up ambulating. Patient denies chest pain or shortness breath. Patient denies nausea vomiting or diarrhea. Patient denies any urinary burning or frequency I performed an examination of the patient and discussed their management with the Nurse Practitioner. I have reviewed the Nurse Practitioner's notes and agree with the documented findings and plan of care Patient Condition at Discharge: Stable Plan - Discharge Summary Discharge Rx Participant: Yes New Discharge Prescriptions: New Ibuprofen [Motrin] 600 mg PO QID PRN tab PRN Reason: Fever Vancomycin Oral Solution 250 mg PO Q6HR 10 Days #200 ml Continue Albuterol Sulfate [Proair Hfa] 1 - 2 puff INHALATION RT-Q6H PRN PRN Reason: Shortness Of Breath Discontinued HYDROcodone/APAP 5-325MG [[place] 5-325] 1 - 2 tab PO Q4H PRN PRN Reason: Pain Docusate [Colace] 100 mg PO DAILY Diazepam [Valium] 5 mg PO Q8H PRN PRN Reason: Muscle Spasm Cephalexin [Keflex] 500 mg PO Q8H PRN PRN Reason: Pain Discharge Medication List Albuterol Sulfate [Proair Hfa] 1 - 2 puff INHALATION RT-Q6H PRN 10/22/19 [History] Ibuprofen [Motrin] 600 mg PO QID PRN tab 10/27/19 [Rx] Vancomycin Oral Solution 250 mg PO Q6HR 10 Days #200 ml 10/27/19 [Rx] Follow up Appointment(s)/Referral(s): Alla Guzmán MD [Primary Care Provider] - 1-2 days
--- NOTE | 2019-10-27 14:25 | PN ---
PROGRESS NOTE DATE OF SERVICE: 10/27/2019 REASON FOR FOLLOWUP: C difficile colitis. INTERVAL HISTORY: The patient is currently afebrile. She was seen on rounds this morning, breathing comfortably. The patient's abdominal pain resolved. No nausea, no vomiting and diarrhea has resolved as well as no bowel movement since yesterday. Overall feeling better and wants to go home home. PHYSICAL EXAMINATION: Blood pressure is 128/79 with a pulse of 98, temperature 98.1. She is 93% on room air. General description is a middle-aged female, up in the chair in no distress. RESPIRATORY SYSTEM: Unlabored breathing, clear to auscultation anteriorly. HEART: S1, S2. Regular rate NS . ABDOMEN: Soft, no tenderness. LABS: Hemoglobin 9.2, white count 8.4, BUN of 10, creatinine 0.56. DIAGNOSTIC IMPRESSION AND PLAN: Patient with C difficile colitis, seemed to have shown clinical improvement. He is afebrile, white count normal. patient is currently covered with p.o. vancomycin to continue for another 10 days to finish a course of therapy and close outpatient followup. MMODL / IJN: [id number] /
== END 2019-10-27 16:03 | disposition home or self-care (01) | DRG 918 ==
LOC: EC 11:05 → 2SICU 13:46
PROVIDERS: ADMIT Internal Medicine; ATTEND Internal Medicine
DX: T39.1X1A Poisoning by 4-Aminophenol derivatives, accidental (unintentional), initial encounter (principal); A04.72 Enterocolitis due to Clostridium difficile, not specified as recurrent; T42.4X1A Poisoning by benzodiazepines, accidental (unintentional), initial encounter; J45.909 Unspecified asthma, uncomplicated; Z80.9 Family history of malignant neoplasm, unspecified; Z98.891 History of uterine scar from previous surgery; Z88.8 Allergy status to other drugs, medicaments and biological substances; Z91.048 Other nonmedicinal substance allergy status; Z98.890 Other specified postprocedural states
CPT/HCPCS: 36415; 71045; 80053; 80076; 80306; 80320; 80329; 81003; 83520; 83605; 85025; 85610; 87040; 87324; 87502; 93005; 94640; 96365; 96366; 96375; 99285

== ENCOUNTER 2021-07-08 19:11 | Emergency (ER) | payer OTHER ==
[2021-07-08] MEDS ORDERED: ACETAMINOPHEN TAB 500 MG TAB PO STA (20:26)
[2021-07-08] MEDS ORDERED: IBUPROFEN 600 MG TAB PO STA (20:26)
--- NOTE | 2021-07-08 20:55 | XR ---
EXAMINATION TYPE: XR chest 1V DATE OF EXAM: 07/08/2021 COMPARISON: 10/24/2019 HISTORY: Cough TECHNIQUE: Single view FINDINGS: Heart is normal. Lungs are clear of consolidation. There is a small infiltrate lateral left lung base. There are no hilar masses. There is no heart failure. Bony thorax is intact. IMPRESSION: There is a minimal lateral left lung base infiltrate that is consistent with minimal pneu monia. There is clearing of the infiltrates and atelectasis at the lung bases to large extent compare d to old exam.
--- NOTE | 2021-07-08 21:45 | ED ---
URI HPI - General Chief Complaint: Upper Respiratory Infection Stated Complaint: headache/fever Time Seen by Provider: 07/08/21 20:09 Source: patient Mode of arrival: ambulatory - History of Present Illness Initial Comments: 35 year-old female patient presents to the emergency department for evaluation of cough, chest tightness, fever, headaches, and body aches. States she started getting symptoms on Friday and thought it was more related to her asthma. States that when symptoms worsened today she took a home COVID test that was positive. She denies taking any medication for her symptoms. She denies significant shortness of breath. She reports nausea. Denies any vomiting or diarrhea. Denies any chance of . - Related Data Home Medications Medication Instructions Recorded Confirmed Albuterol Sulfate [Proair Hfa] 1 - 2 puff INHALATION RT-Q6H PRN 10/22/19 10/22/19 Previous Rx's Medication Instructions Recorded Ibuprofen [Motrin] 600 mg PO QID PRN tab 10/27/19 Vancomycin Oral Solution 250 mg PO Q6HR 10 Days #200 ml 10/27/19 Allergies Allergy/AdvReac Type Severity Reaction Status Date / Time alcohol Allergy Unknown Verified 07/08/21 20:01 [From Mastisol Adhesive] gum mastic Allergy Unknown Verified 07/08/21 20:01 [From Mastisol Adhesive] methyl salicylate Allergy Unknown Verified 07/08/21 20:01 [From Mastisol Adhesive] storax Allergy Unknown Verified 07/08/21 20:01 [From Mastisol Adhesive] Review of Systems ROS Statement: Those systems with pertinent positive or pertinent negative responses have been documented in the HPI. ROS Other: All systems not noted in ROS Statement are negative. Past Medical History Past Medical History: Asthma Additional Past Medical History / Comment(s): Exercise induced asthma, History of Any Multi-Drug Resistant Organisms: None Reported Past Surgical History: Section Additional Past Surgical History / Comment(s): rhinoplasty, Abdominal plasty & breast augmentation on 10/20/19 Past Anesthesia/Blood Transfusion Reactions: Motion Sickness, Postoperative Nausea & Vomiting (PONV) Past Psychological History: No Psychological Hx Reported Smoking Status: Never smoker Past Alcohol Use History: None Reported Past Drug Use History: None Reported - Past Family History Mother Family Medical History: Cancer Additional Family Medical History / Comment(s): Breast Father Family Medical History: Cancer Additional Family Medical History / Comment(s): Prostate Brother(s) Additional Family Medical History / Comment(s): Alive and well General Exam General appearance: alert, in no apparent distress, other (This is a well- developed, well-nourished adult female patient in no acute distress. Vital signs upon presentation temperature 99.5F, pulse 85, respirations 20, blood pressure 112/62, pulse ox 99% on room air.) Eye exam: Present: normal appearance, PERRL, EOMI. Absent: scleral icterus, conjunctival injection, periorbital swelling ENT exam: Present: normal exam, normal oropharynx, mucous membranes moist, TM's normal bilaterally Respiratory exam: Present: normal lung sounds bilaterally. Absent: respiratory distress, wheezes, rales, rhonchi, stridor Cardiovascular Exam: Present: regular rate, normal rhythm, normal heart sounds. Absent: systolic murmur, diastolic murmur, rubs, gallop, clicks GI/Abdominal exam: Present: soft, normal bowel sounds. Absent: distended, tenderness, guarding, rebound, rigid Neurological exam: Present: alert, oriented X3, CN II-XII intact Psychiatric exam: Present: normal affect, normal mood Skin exam: Present: warm, dry, intact, normal color. Absent: rash Course Vital Signs 07/08/21 07/08/21 07/08/21 19:56 20:05 22:00 Temperature 99.5 F Pulse Rate 85 84 Respiratory 20 22 20 Rate Blood Pressure 112/62 114/68 O2 Sat by Pulse 99 96 Oximetry 07/08/21 23:59 Temperature 99.2 F Pulse Rate 72 Respiratory 20 Rate Blood Pressure 110/85 O2 Sat by Pulse 96 Oximetry Medical Decision Making - Medical Decision Making 35 year-old female patient presented to the emergency department for evaluation after having a positive home Covid test. Physical examination was unremarkable. Lungs are clear to auscultation with good air movement. She did have temperature 99.5F. Oxygen saturation was good. Chest x-ray showed possible minimal pneumonia to the left lateral lung base. She did test positive here as well. She does meet qualifications for regeneron infusion. She tolerlate infusion without difficulty. She will be discharged to follow up with her primary care physician for recheck in 1-2 days. Return parameters are discussed in detail. She verbalizes understanding and agrees with this plan. Case discussed with my attending Dr. Fagan. - Lab Data Lab Results 07/08/21 Range/Units 20:30 Coronavirus (PCR) Detected A (Not Detectd) - Radiology Data Radiology results: report reviewed, image reviewed One view x-ray of the chest is obtained. Report is reviewed in its entirety. Impression by Dr. London shows minimal left lateral lung base infiltrate that is consistent with minimal pneumonia. There is clearing of the infiltrate and atelectasis at the lung bases to large extent compared to old exam. Disposition Clinical Impression: COVID-19 Disposition: HOME SELF-CARE Condition: Good Instructions (If sedation given, give patient instructions): Coronavirus Disease 2019 (COVID-19) Additional Instructions: Tylenol and Motrin for pain control. Follow-up with the primary care physician for recheck in 1-2 days. Return for any new, worsening, or concerning symptoms. Is patient prescribed a controlled substance at d/c from ED?: No Referrals: Alla Guzmán MD [Primary Care Provider] - 1-2 days Decision to Admit Reason: Admit from EC
[2021-07-08] MEDS ORDERED: CASIRIVIMAB (REGN10933) (EUA) 600 MG, IMDEVIMAB (REGN10987) (EUA) 600 MG in SODIUM CHLO... IVPB ONE (22:00)
[2021-07-08] MEDS ORDERED: SODIUM CHLORIDE 0.9% 50 ML IVPB ONE (22:00)
[2021-07-08 23:48] VITALS: RESP 20
[2021-07-09] VITALS: BP 110/85; PULSE 72; TEMP 99.2
== END 2021-07-09 00:03 | disposition home or self-care (01) ==
LOC: EC 19:11
DX: U07.1 COVID-19 (principal); J45.909 Unspecified asthma, uncomplicated
CPT/HCPCS: 96360; 99285; 87635; 71045; M0243; Q0244

== ENCOUNTER 2021-09-23 21:57 | Emergency (ER) | payer OTHER ==
[2021-09-23 23:14] VITALS: BP 93/60; PULSE 98; RESP 18; TEMP 98.3
--- NOTE | 2021-09-23 23:39 | ED ---
Skin/Abscess/FB HPI - General Chief complaint: Skin/Abscess/Foreign Body Stated complaint: Left hand laceration Time Seen by Provider: 09/23/21 23:18 Source: patient, RN notes reviewed Mode of arrival: ambulatory Limitations: physical limitation - History of Present Illness Initial comments: Patient is a 35 she'll female that presents to the emergency department complaining of a left index finger laceration at the base. She notes she was cleaning dishes when a glass broke and cut the back of her left hand at the MCP joint. She notes that she cleaned it thoroughly prior to arrival. She notes she is up-to-date on her tetanus shot. She was otherwise in no apparent distress. She denied any chest pain shortness of breath headache nausea vomiting diarrhea constipation fever fatigue chills. - Related Data Home Medications Medication Instructions Recorded Confirmed Albuterol Sulfate [Proair Hfa] 1 - 2 puff INHALATION RT-Q6H PRN 10/22/19 10/22/19 Previous Rx's Medication Instructions Recorded Ibuprofen [Motrin] 600 mg PO QID PRN tab 10/27/19 Vancomycin Oral Solution 250 mg PO Q6HR 10 Days #200 ml 10/27/19 Allergies Allergy/AdvReac Type Severity Reaction Status Date / Time alcohol Allergy Unknown Verified 09/23/21 23:14 [From Mastisol Adhesive] gum mastic Allergy Unknown Verified 09/23/21 23:14 [From Mastisol Adhesive] methyl salicylate Allergy Unknown Verified 09/23/21 23:14 [From Mastisol Adhesive] storax Allergy Unknown Verified 09/23/21 23:14 [From Mastisol Adhesive] Review of Systems ROS Statement: Those systems with pertinent positive or pertinent negative responses have been documented in the HPI. ROS Other: All systems not noted in ROS Statement are negative. Past Medical History Past Medical History: Asthma Additional Past Medical History / Comment(s): Exercise induced asthma, History of Any Multi-Drug Resistant Organisms: None Reported Past Surgical History: Section Additional Past Surgical History / Comment(s): rhinoplasty, Abdominal plasty & breast augmentation on 10/20/19 Past Anesthesia/Blood Transfusion Reactions: Motion Sickness, Postoperative Nausea & Vomiting (PONV) Past Psychological History: No Psychological Hx Reported Smoking Status: Never smoker Past Alcohol Use History: None Reported Past Drug Use History: None Reported - Past Family History Mother Family Medical History: Cancer Additional Family Medical History / Comment(s): Breast Father Family Medical History: Cancer Additional Family Medical History / Comment(s): Prostate Brother(s) Additional Family Medical History / Comment(s): Alive and well General Exam Limitations: physical limitation General appearance: alert, in no apparent distress Head exam: Present: atraumatic, normocephalic, normal inspection Eye exam: Present: normal appearance, PERRL, EOMI. Absent: scleral icterus, conjunctival injection, periorbital swelling ENT exam: Present: normal exam, mucous membranes moist Neck exam: Present: normal inspection Respiratory exam: Present: normal lung sounds bilaterally. Absent: respiratory distress, wheezes, rales, rhonchi, stridor Cardiovascular Exam: Present: regular rate, normal rhythm, normal heart sounds. Absent: systolic murmur, diastolic murmur, rubs, gallop, clicks GI/Abdominal exam: Present: soft, normal bowel sounds. Absent: distended, tenderness, guarding, rebound, rigid Extremities exam: Present: normal inspection, full ROM, normal capillary refill, other (Small laceration to the dorsal aspect of the left index finger at the MCP joint.). Absent: tenderness, pedal edema, joint swelling, calf tenderness Neurological exam: Present: alert, oriented X3 Psychiatric exam: Present: normal affect, normal mood Skin exam: Present: warm, dry, intact, normal color. Absent: rash Expanded Type of lesion: Present: laceration (1.5 inch to the MCP joint dorsal aspect left index and her.) Course Vital Signs 09/23/21 23:10 Temperature 98.3 F Pulse Rate 98 Respiratory 18 Rate Blood Pressure 93/60 O2 Sat by Pulse 98 Oximetry Procedures - Laceration Laceration #1 Consent Obtained: verbal consent Indication: laceration Site: hand (Dorsal aspect left index finger metacarpophalangeal joint.) Size (cm): 3 Description: linear Depth: simple, single layer Pre-repair: irrigated extensively Type of Sutures: nylon Size of Sutures: 5-0 Number of Sutures: 3 Technique: simple, interrupted Patient Tolerated Procedure: well, no complications Medical Decision Making - Medical Decision Making 35 she'll female with a left index finger laceration. Patient tolerated suturing well. Patient is up-to-date on tetanus. Patient is unable to discharge home. Case discussed with Dr. Webb Disposition Clinical Impression: Laceration Disposition: HOME SELF-CARE Condition: Stable Instructions (If sedation given, give patient instructions): Laceration (ED), Care For Your Stitches (ED) Additional Instructions: Please return to the Emergency Department if symptoms worsen or any other concerns. Follow-up with primary care 1-2 days. Please return in 7-10 days to have sutures removed. Is patient prescribed a controlled substance at d/c from ED?: No Referrals: Alla Guzmán MD [Primary Care Provider] - 1-2 days Time of Disposition: 23:38
== END 2021-09-24 00:18 | disposition home or self-care (01) ==
LOC: EC 21:57
DX: S61.211A Laceration without foreign body of left index finger without damage to nail, initial encounter (principal); J45.909 Unspecified asthma, uncomplicated; Z79.51 Long term (current) use of inhaled steroids; Z79.1 Long term (current) use of non-steroidal anti-inflammatories (NSAID); W25.XXXA Contact with sharp glass, initial encounter; Y93.G1 Activity, food preparation and clean up
CPT/HCPCS: 12002; 99282

== ENCOUNTER → 2023-02-26 | Outpatient (CLI) | payer OTHER ==
[2023-02-26 21:40] LABS: Gliadin AB IgA, Deaminated NEGATIVE (NEGATIVE); Gliadin AB IgA, Unit 5.5 U/mL; Gliadin AB IgG, Deaminated NEGATIVE (NEGATIVE); Gliadin AB IgG, Unit <0.4 U/mL
== END | disposition home or self-care (01) ==
LOC: LABWHC1 14:40
PROVIDERS: ATTEND Nurse Practitioner Family
DX: K59.09 Other constipation (principal)
CPT/HCPCS: 36415; 83516; 85652; 86140

== ENCOUNTER 2023-04-09 07:00 | Day surgery (SDC) | payer OTHER ==
[~2023-04-09 07:00] MED LIST: LACTATED RINGERS 1,000 ML IV SCH; LIDOCAINE 1% (10MG/ML) FOR IV START INTRADERMA PRN
[2023-04-09] MEDS ORDERED: ONDANSETRON 4 MG/2 ML VIAL ONE (07:23)
[2023-04-09 07:27] VITALS: TEMP 97.4
[2023-04-09] MEDS ORDERED: LIDOCAINE 2% INJ 20 MG/ML (2 ML VIAL) ONE (08:22)
[2023-04-09] MEDS ORDERED: PROPOFOL 10 MG/ML 20 ML VIAL IV ONE (08:22)
--- NOTE | 2023-04-09 08:43 | P.PCN ---
Date of Procedure: 04/09/23 Procedure(s) Performed: Brief history: Patient is a pleasant 37-year-old white female scheduled for an elective upper endoscopy as well as colonoscopy as a part of evaluation of intermittent episodes of nausea vomiting, abdominal pain and alternating diarrhea and constipation for the last several months duration Procedure performed: Esophagogastroduodenoscopy with biopsy Colonoscopy with random biopsies. Preoperative diagnosis: You, vomiting and abdominal pain Change in bowel habits Anesthesia: MAC Procedure: After informed consent was obtained from the patient was brought into the endoscopy unit and IV sedation was administered by anesthesia under continuous monitoring. Initially upper endoscopy was done. The Olympus GF 160 video endoscope was inserted inserted into the mouth and esophagus intubated without any difficulty and was gradually advanced into the stomach and duodenum and carefully examined. The bulb and second part of the duodenum appeared normal. Biopsies were done from the duodenum to rule out celiac disease. The scope was then withdrawn into the stomach adequately insufflated with air and upon careful examination the antrum had linear areas of erythema and erosions consistent with gastritis and biopsies were done from this area. Mucosa of the body, cardia and fundus appeared normal. The scope was then withdrawn into the esophagus. The GE junction was located at 40 cm to the incisors. It appeared regular with no erythema erosions or ulcerations. Rest of the esophagus appeared normal. Patient tolerated the procedure well. At this time the patient continued to remain sedation. Initial digital rectal examination was normal. Olympus CF 160 video colonoscope was then inserted into the rectum and gradually advanced to the cecum without any difficulty. Careful examination was performed as the scope was gradually being withdrawn. The prep was excellent. The cecum, ascending colon, transverse colon, descending colon, sigmoid colon and rectum appeared normal. scattered sigmoid diverticula cyst. Random biopsies were done from ascending and descending colon to rule out metastatic/collagenous colitis. Retroflexion was performed in the rectum and no lesions were noted. Patient tolerated the procedure well. Impression: 1. Upper endoscopy revealed antral erosive gastritis but no evidence of esophagitis or peptic ulcer disease 2. Colonoscopy was within normal limits with no evidence of colorectal neoplasia except for scattered sigmoid diverticulosis Recommendations: Findings of this examination were discussed with the patient as well as. She was advised to follow with the biopsy results. Recommend a trial of Pepcid 20 mg twice daily and was briefly educated about antireflux measures. Recommend a repeat screening colonoscopy in 10 years.
[2023-04-09 09:15] VITALS: PULSE 67
[2023-04-09 09:16] VITALS: BP 110/68; RESP 18
== END 2023-04-09 09:28 | disposition home or self-care (01) ==
LOC: ORWHC2ENDO 07:00
PROVIDERS: ATTEND Internal Medicine Gastroenterology
DX: K29.50 Unspecified chronic gastritis without bleeding (principal); K59.09 Other constipation; K57.30 Diverticulosis of large intestine without perforation or abscess without bleeding
CPT/HCPCS: 81025; 88305; 45380; 43239; J2405; J2704; J2001

== ENCOUNTER → 2024-04-26 | Outpatient (CLI) | payer OTHER ==
--- NOTE | 2024-04-26 21:38 | MR ---
EXAMINATION TYPE: MR lumbar spine wo con DATE OF EXAM: 04/26/2024 6:12 PM CLINICAL INDICATION:Female, 38 years old with history of M48.061 L SPINAL STENOSIS M54.16 L RADICULOP ATHY; PHH, Chronic low back pain into left side, Numbness Left foot, x7 weeks COMPARISON: None TECHNIQUE: Multi planar, multi sequence imaging was performed utilizing: T1-weighted, T2-weighted, a nd turbo inversion recovery imaging of the lumbar spine. IV Contrast: cc . (None if empty) FINDINGS: Alignment: The lumbar vertebral bodies have preserved heights with grade 1 anterolisthesis of L4 on L 5. Cord: The conus medullaris and the distal spinal cord appear unremarkable with regards to their signa l intensity and morphology. Bones/Discs: Mild degeneration changes throughout the spine with osteophyte formation and facet joint arthropathy. Intervertebral disc signal is maintained. No abnormal inversion recovery signal to sugg est bony edema. T12-L1: No evidence of significant spinal canal stenosis or neural foraminal stenosis. L1-L2: No evidence of significant spinal canal stenosis or neural foraminal stenosis. L2-L3: No evidence of significant spinal canal stenosis or neural foraminal stenosis. L3-L4: Disc bulge and facet joint arthropathy result in mild spinal canal and moderate bilateral neur al foraminal stenosis. L4-L5: Disc uncovering from grade 1 anterolisthesis and facet joint arthropathy with mild spinal jessika l stenosis and moderate bilateral neural foraminal stenosis. L5-S1: Left central/subarticular disc protrusion/extrusion which displaces thee forming nerves/exitin g S1-S2 nerve on the left.a No significant spinal canal or neural foraminal stenosis in the remainder of the visualized levels. Other findings: None. IMPRESSION: 1. L5-S1 left central/subarticular disc protrusion/extrusion which displaces the forming nerves in t he spinal canal. 2. Multilevel disc degeneration with associated osteoarthritic changes. Moderate neural foraminal st enosis at all L3-L4 and L4-L5. Moderate left L5-S1 neural foraminal stenosis. 3. Grade 1 anterolisthesis of L4 on L5.
== END | disposition home or self-care (01) ==
LOC: RADMRIMAIN 17:25
PROVIDERS: ATTEND Orthopaedic Surgery
DX: M48.061 Spinal stenosis, lumbar region without neurogenic claudication (principal); M54.16 Radiculopathy, lumbar region; M51.27 Other intervertebral disc displacement, lumbosacral region; M51.36 Other intervertebral disc degeneration, lumbar region
CPT/HCPCS: 72148

== ENCOUNTER → 2024-05-11 | Outpatient (CLI) | payer OTHER | LOC: LABPAT 13:20 | PROVIDERS: ATTEND Orthopaedic Surgery | DX: Z01.818 Encounter for other preprocedural examination | CPT/HCPCS: 86850; 86900; 86901; 87070 ==

== ENCOUNTER → 2024-09-10 | Outpatient (CLI) | payer OTHER ==
[2024-09-10 17:29] LABS: ALT 24 U/L (8-44); AST 20 U/L (13-35); Albumin/Globulin Ratio 1.48 Ratio (1.60-3.17); Alkaline Phosphatase 63 U/L (41-126); Blood Urea Nitrogen 11.7 mg/dL (9.0-27.0); Calcium 9.4 mg/dL (8.7-10.3); Carbon Dioxide 27.4 mmol/L (21.6-31.8); Chloride 105 mmol/L (96-109); Globulin 2.7 g/dL (1.6-3.3); Glucose 100 mg/dL (70-110); Potassium 4.6 mmol/L (3.5-5.5); Sodium 140 mmol/L (135-145); Total Bilirubin 0.2 mg/dL (0.3-1.2); Total Protein 6.7 g/dL (6.2-8.2)
== END | disposition home or self-care (01) ==
LOC: LABWHC1 08:09
DX: E87.8 Other disorders of electrolyte and fluid balance, not elsewhere classified (principal); E88.819 Insulin resistance, unspecified
CPT/HCPCS: 36415; 80053; 83525